=== PATIENT | male | born 1945 | race Caucasian/White ===

== ENCOUNTER 2016-10-29 21:10 | Observation (INO) | payer MEDICARE ==
[~2016-10-29] VITALS: Ht 172.7 cm; Wt 73.4 kg
[~2016-10-29 21:10] MED LIST: ASPI81CH CHEW; METO50TA PO; ROSU40 PO
[2016-10-29 21:17] VITALS: BP 200/82; PULSE 77; RESP 18; TEMP 97.6; O2SAT 97
[2016-10-29 21:35] VITALS: BP_SYST 150; BP_SYST 169; BP_DIAS 78; BP_DIAS 88; PULSE 77; RESP 18; O2SAT 97
[2016-10-29 21:45] VITALS: BP 162/82; PULSE 70; RESP 18; O2SAT 96
[2016-10-29] MEDS ORDERED: METOPROLOL TARTRATE 5 MG/5 ML VIAL IVS SCH (21:45)
[2016-10-29] MEDS ORDERED: SODIUM CHLORIDE 0.9% FLUSH 5 ML FLUSH IVF PRN ×2 (21:45→23:15)
--- NOTE | 2016-10-29 21:45 | PD ---
HPI Chief Complaint: Chest Pain Time Seen by Provider: 21:33 Travel History International Travel<30 days: No Contact w/Intl Traveler<30days: No Traveled to known affect area: No History of Present Illness HPI The patient is a 71-year-old male that complains of chest pressure beginning at 7 PM tonight in the substernal area and constant. He does have a history of heart disease. His last stress test was 4-5 years ago. He denies any nausea, diaphoresis or radiation of pain but does have some shortness of breath. He is a [facility] patient of Dr. Anthony Ryan and he has an appointment with her tomorrow. This happened as he was resting and watching TV. He states he may have been somewhat stressed hearing reports about the storm tonight. PFSH Past Medical History Atrial Fibrillation: Yes Blood Disorders: No Anxiety: No Depression: No Heart Rhythm Problems: No Cancer: No Cardiac Catheterization: No Cardiovascular Problems: Yes High Cholesterol: Yes Congestive Heart Failure: No Cerebrovascular Accident: Yes (tia) Diabetes: No Diminished Hearing: No Endocrine: No Genitourinary: No Hypertension: Yes Immune Disorder: No Musculoskeletal: No Neurologic: No Psychiatric: No Reproductive: No Respiratory: No Immunizations Current: Yes Thyroid Disease: No Past Surgical History Abdominal Surgery: Yes (APPENDECTOMY) Appendectomy: Yes Cardiac Surgery: No Coronary Artery Bypass Graft: No Ear Surgery: No Endocrine Surgery: No Eye Surgery: No Genitourinary Surgery: No Gynecologic Surgery: No Oral Surgery: Yes (TONSILLECTOMY) Thoracic Surgery: No Tonsillectomy: Yes Other Surgery: Yes Social History Alcohol Use: No Tobacco Use: Yes (1/2 PACK A DAY FOR 40 YEARS) Substance Use: No Allergies-Medications (Allergen,Severity, Reaction): Coded Allergies: Amoxicillin (Verified Allergy, Severe, ITCHING, 10/29/16) Bee Sting (Verified Allergy, Mild, ITCHING BENADRYL STOPS ITCHING, 10/29/16 ) Reported Meds & Prescriptions Reported Meds & Active Scripts Active Reported Metoprolol Tartrate 50 Mg Tab 50 Mg PO DAILY Crestor (Rosuvastatin Calcium) 40 Mg Tab 40 Mg PO DAILY Aspirin 81 Mg Chew 162 Mg CHEW DAILY Review of Systems Except as stated in HPI: all other systems reviewed are Neg Physical Exam Narrative GENERAL: The patient is alert, oriented 3 in no apparent distress. His vital signs show blood pressure 200/82 but otherwise normal. SKIN: Warm and dry. HEAD: Atraumatic. Normocephalic. EYES: Pupils equal and round. No scleral icterus. No injection or drainage. ENT: No nasal bleeding or discharge. Mucous membranes pink and moist. NECK: Trachea midline. No JVD. CARDIOVASCULAR: Regular rate and rhythm. No murmur appreciated. RESPIRATORY: No accessory muscle use. A few rare rhonchi are heard on expiration. Breath sounds equal bilaterally. GASTROINTESTINAL: Abdomen soft, non-tender, nondistended. Hepatic and splenic margins not palpable. No guarding or rebound is present. MUSCULOSKELETAL: No obvious deformities. No clubbing. No cyanosis. No edema. NEUROLOGICAL: Awake and alert. No obvious cranial nerve deficits. Motor grossly within normal limits. Normal speech. PSYCHIATRIC: Appropriate mood and affect; insight and judgment normal. Data Data Last Documented VS Vital Signs Date Time Temp Pulse Resp B/P Pulse Ox O2 Delivery O2 Flow Rate FiO2 10/29/16 22:26 97 Room Air 10/29/16 22:00 67 18 131/71 10/29/16 21:17 97.6 Orders Electrocardiogram (10/29/16 21:33) Ckmb (Isoenzyme) Profile (10/29/16 21:33) Complete Blood Count With Diff (10/29/16 21:33) Comprehensive Metabolic Panel (10/29/16 21:33) Magnesium (Mg) (10/29/16 21:33) Prothrombin Time / Inr (Pt) (10/29/16 21:33) Act Partial Throm Time (Ptt) (10/29/16 21:33) Troponin I (10/29/16 21:33) Chest, Single Ap (10/29/16 21:33) Ecg Monitoring (10/29/16 21:33) Iv Access Insert/Monitor (10/29/16 21:33) Oximetry (10/29/16 21:33) Oxygen Administration (10/29/16 21:33) Sodium Chloride 0.9% Flush (Ns Flush) (10/29/16 21:45) Nitroglycerin Sl (Nitrostat Sl) (10/29/16 22:00) Labs Laboratory Tests Test 10/29/16 21:15 White Blood Count 11.3 TH/MM3 Red Blood Count 5.00 MIL/MM3 Hemoglobin 14.6 GM/DL Hematocrit 44.6 % Mean Corpuscular Volume 89.2 FL Mean Corpuscular Hemoglobin 29.3 PG Mean Corpuscular Hemoglobin 32.9 % Concent Red Cell Distribution Width 14.2 % Platelet Count 192 TH/MM3 Mean Platelet Volume 10.3 FL Neutrophils (%) (Auto) 56.0 % Lymphocytes (%) (Auto) 33.4 % Monocytes (%) (Auto) 7.1 % Eosinophils (%) (Auto) 3.1 % Basophils (%) (Auto) 0.4 % Neutrophils # (Auto) 6.4 TH/MM3 Lymphocytes # (Auto) 3.8 TH/MM3 Monocytes # (Auto) 0.8 TH/MM3 Eosinophils # (Auto) 0.3 TH/MM3 Basophils # (Auto) 0.0 TH/MM3 CBC Comment DIFF FINAL Differential Comment Prothrombin Time 10.0 SEC Prothromb Time International 0.9 RATIO Ratio Activated Partial 27.2 SEC Thromboplast Time Sodium Level 143 MEQ/L Potassium Level 3.5 MEQ/L Chloride Level 109 MEQ/L Carbon Dioxide Level 26.7 MEQ/L Anion Gap 7 MEQ/L Blood Urea Nitrogen 24 MG/DL Creatinine 1.20 MG/DL Estimat Glomerular Filtration 60 ML/MIN Rate Random Glucose 119 MG/DL Calcium Level 8.6 MG/DL Magnesium Level 1.9 MG/DL Total Bilirubin 0.3 MG/DL Aspartate Amino Transf 18 U/L (AST/SGOT) Alanine Aminotransferase 23 U/L (ALT/SGPT) Alkaline Phosphatase 81 U/L Total Creatine Kinase 68 U/L Troponin I LESS THAN 0.02 NG/ML Total Protein 7.0 GM/DL Albumin 3.5 GM/DL [facility] Medical Decision Making Medical Screen Exam Complete: Yes Emergency Medical Condition: Yes Medical Record Reviewed: Yes Interpretation(s) The EKG shows sinus rhythm with PACs. Except for the PACs, there is no significant change from an EKG taken on January 2015. Differential Diagnosis Acute coronary syndromeunlikely chest pain etiology undetermined, electrolyte imbalance, hypo-/hyperglycemia, anxiety, esophageal pain, chest wall pain, gastrointestinal pain Narrative Course The patient has chest pain etiology undetermined. There is no evidence at this time that he has an acute coronary syndrome. Plan: The patient will be admitted to the chest pain center, I discussed the patient with Drs. Stephenson and David. Diagnosis Primary Impression: Chest pain of uncertain etiology Admitting Information Admitting Physician Requests: Observation Arnaldo Espinal MD Oct 29, 2016 21:45
[2016-10-29 21:54] LABS: AUTOMATED NEUTROPHIL # 6.4 TH/MM3 (1.8-7.7); BASOPHIL % 0.4 % (0.0-2.0); EOSINOPHIL # 0.3 TH/MM3 (0-0.4); EOSINOPHIL % 3.1 % (0.0-4.0); HEMATOCRIT 44.6 % (39.0-51.0); HEMO FLAGS DIFF FINAL; LYMPH % 33.4 % (9.0-44.0); LYMPHOCYTE # 3.8 TH/MM3 (1.0-4.8); MEAN CELL VOLUME 89.2 FL (80.0-100.0); MEAN CORPUSCULAR HEMOGLOBIN 29.3 PG (27.0-34.0); MEAN CORPUSCULAR HGB CONC 32.9 % (32.0-36.0); MONO % 7.1 % (0.0-8.0); PLATELET COUNT 192 TH/MM3 (150-450); RED CELL DISTRIBUTION WIDTH 14.2 % (11.6-17.2); WHITE BLOOD COUNT 11.3 TH/MM3 (4.0-11.0)
[2016-10-29 22:00] VITALS: BP 131/71; PULSE 67; RESP 18; O2SAT 95
[2016-10-29] MEDS: NITROGLYCERIN 0.4 MG SL 25 TABS/BTL SL SCH ×3 (22:00→22:10)
[2016-10-29 22:03] LABS: CHLORIDE 109 MEQ/L (98-107); POTASSIUM 3.5 MEQ/L (3.5-5.1); SODIUM (NA) 143 MEQ/L (136-145)
[2016-10-29 22:07] LABS: ANION GAP 7 MEQ/L (5-15); BICARBONATE 26.7 MEQ/L (21.0-32.0); BLOOD UREA NITROGEN 24 MG/DL (7-18); MAGNESIUM 1.9 MG/DL (1.5-2.5)
[2016-10-29 22:09] LABS: APTT (PATIENT) 27.2 SEC (24.3-30.1); INTERNATIONAL NORMALIZED RATIO 0.9 RATIO
[2016-10-29 22:10] LABS: ALT (GPT) 23 U/L (12-78); AST (GOT) 18 U/L (15-37); GLOMERULAR FILTRATION RATE 60 ML/MIN (>89)
[2016-10-29 22:11] LABS: TOTAL BILIRUBIN ADULT 0.3 MG/DL (0.2-1.0)
[2016-10-29 22:13] LABS: ALKALINE PHOSPHATASE 81 U/L (45-117)
[2016-10-29 22:36] LABS: CREATINE KINASE 68 U/L (39-308)
--- NOTE | 2016-10-29 22:38 | RADHPO ---
EXAM DATE/TIME: 10/29/2016 22:30 [facility] COMPARISON: CHEST SINGLE AP, September 28, 2016, 13:36. INDICATIONS : Chest pain MEDICAL HISTORY : None. SURGICAL HISTORY : None. ENCOUNTER: Initial ACUITY: 2 days PAIN SCORE: 6/10 LOCATION: Bilateral chest FINDINGS: A single view of the chest demonstrates the lungs to be symmetrically aerated without evidence of mas s, infiltrate or effusion. The cardiomediastinal contours are unremarkable. Aortic calcifications ar e present. There is degenerative change at the left glenohumeral joint.. CONCLUSION: No acute disease. David Castle MD on October 29, 2016 at 22:36 Board Certified Radiologist. This report was verified electronically.
[2016-10-29] MEDS ORDERED: ONDANSETRON HCL 4 MG/2 ML VIAL IV PRN (23:15)
[2016-10-29] MEDS ORDERED: ACETAMINOPHEN 500 MG CPLT PO PRN (23:15)
[2016-10-29 23:47] VITALS: O2SAT 97
[2016-10-30 01:00] VITALS: BP 165/68; PULSE 77; RESP 18; O2SAT 99
[2016-10-30 01:03] LABS: CREATINE KINASE 75 U/L (39-308)
[2016-10-30 03:00] VITALS: BP 145/67; PULSE 62; RESP 18; O2SAT 98
[2016-10-30 04:22] LABS: CREATINE KINASE 72 U/L (39-308)
[2016-10-30 08:00] VITALS: BP 147/73; PULSE 62; RESP 16; TEMP 97.8; O2SAT 96
--- NOTE | 2016-10-30 08:08 | HHI.HP ---
[facility] Primary Care Physician No Primary Care Physician Admission Diagnosis chest pain uncertain etiology Diagnoses: (1) Chest pain of uncertain etiology Diagnosis: Principal (2) Hypertension Diagnosis: Secondary (3) Hyperlipidemia Diagnosis: Secondary (4) History of atrial fibrillation Diagnosis: Secondary (5) Tobacco use Diagnosis: Secondary Chief Complaint: Chest pain Travel History International Travel<30 Days: No Contact w/Intl Traveler <30 Da: No Traveled to Known Affected Are: No History of Present Illness 71 year-old male with known history of hypertension, hyperlipidemia, history of atrial fibrillation, history of CVA, tobacco use who presented to hospital because of chest pain. Patient states the chest pain started last night while watching TV in all of the storm alerts are gone off he developed a pressure type sensation in the middle part of his chest radiating into/10 on a pain scale. It remained persistent until he came to the hospital and while he was emergency department it resolved without any medications. Patient states he did not have any associated pain radiation to the neck, shoulder, back, nausea, vomiting, diaphoresis, shortness of breath, dyspnea. Patient has not had any recurrent chest discomfort since being in the hospital. Patient was evaluated in 2015 by myself for similar symptoms. At that time patient did undergo nuclear stress test which did indicate no signs of ischemia. With ejection fraction greater than 65%. Patient does have increased risk factors for underlying cardiac disease. Patient is recommended chest pain center observation for further management. Review of Systems Constitutional: DENIES: Diaphoretic episodes, Fatigue, Fever, Weight gain, Weight loss, Chills, Dizziness, Change in appetite, Night Sweats Eyes: DENIES: Blurred vision, Diplopia, Eye inflammation, Eye pain, Vision loss , Double Vision Ears, nose, mouth, throat: DENIES: Vertigo, Nasal discharge, Throat pain, Ear Pain, Running Nose, Sinus Pain Respiratory: DENIES: Apneas, Cough, Snoring, Wheezing, Hemoptysis, Sputum production, Shortness of breath Cardiovascular: COMPLAINS OF: Chest pain, DENIES: Palpitations, Syncope, Dyspnea on Exertion, Lower Extremity Edema, Orthopnea Gastrointestinal: DENIES: Abdominal pain, Black stools, Bloody stools, Constipation, Diarrhea, Nausea, Vomiting, Difficulty Swallowing, Anorexia Neurologic: DENIES: Abnormal gait, Headache, Localized weakness, Paresthesias, Seizures, Speech Problems, Tremor, Poor Balance Psychiatric: DENIES: Anxiety, Confusion, Mood changes, Depression Past Family Social History Past Medical History Hypertension Hyperlipidemia History of atrial fibrillation History CVA Chronic tobacco use Past Surgical History Appendectomy Tonsillectomy Reported Medications Reported Meds & Active Scripts Active Reported Metoprolol Tartrate 50 Mg Tab 50 Mg PO DAILY Crestor (Rosuvastatin Calcium) 40 Mg Tab 40 Mg PO DAILY Aspirin 81 Mg Chew 162 Mg CHEW DAILY Allergies: Coded Allergies: Amoxicillin (Verified Allergy, Severe, ITCHING, 10/29/16) Bee Sting (Verified Allergy, Mild, ITCHING BENADRYL STOPS ITCHING, 10/29/16 ) Family History Reviewed and unremarkable Social History Patient smokes a half a pack a cigarettes a day at this time, he is to smoke one pack a cigarettes a day since he was 21 years old. Patient does use a couple beers daily. Denies any illicit drugs Physical Exam Vital Signs Vital Signs Date Time Temp Pulse Resp B/P Pulse Ox O2 Delivery O2 Flow Rate FiO2 10/30/16 03:00 62 98 Room Air 10/30/16 03:00 62 18 145/67 98 Room Air 10/30/16 01:00 77 10/30/16 01:00 77 18 165/68 99 Room Air 10/29/16 23:47 97 21 10/29/16 22:26 97 Room Air 10/29/16 22:00 67 18 131/71 95 Room Air 10/29/16 21:45 70 18 162/82 96 Room Air 10/29/16 21:35 77 18 169/88 97 Room Air 150/78 10/29/16 21:30 71 20 99 Room Air 10/29/16 21:17 97.6 77 18 200/82 97 Physical Exam GENERAL: Well-developed, well-nourished, in no acute distress. alert and orientated HEENT: Head is normocephalic without any lesions or masses noted. Facial features are symmetric. Eyes: Pupils equal round reactive to light. Extraocular muscles are intact. Conjunctivae were clear. Oropharyngeal: Pharynx without any erythema edema. Tongue is midline without deviation. Buccal mucosa is moist without any masses or lesions NECK: Supple without any masses. Trachea midline no deviation. No JVD, no bruits are appreciated CARDIAC: Regular rhythm, regular rate. S1/S2 are heard. No murmurs gallops or rubs. LUNGS: Clear to auscultation bilaterally. No wheeze, rhonchi or rales. No use of accessory muscles on inspiration or expiration. ABDOMEN: Soft, nontender. Nondistended. Bowel sounds heard in all 4 quadrants. No organomegaly or masses. Negative rebound, negative guarding EXTREMITIES: No edema, pulses are equal bilaterally. No cyanosis or clubbing NEUROLOGY: Mood and affect appear appropriate. Cranial nerves II through XII grossly intact. Muscle strength 5/5 in upper and lower extremities bilaterally. Deep tendon reflexes are 2+ in upper and lower extremities bilaterally. Laboratory Laboratory Tests Test 10/29/16 10/30/16 10/30/16 21:15 00:20 03:07 White Blood Count 11.3 Red Blood Count 5.00 Hemoglobin 14.6 Hematocrit 44.6 Mean Corpuscular Volume 89.2 Mean Corpuscular Hemoglobin 29.3 Mean Corpuscular Hemoglobin 32.9 Concent Red Cell Distribution Width 14.2 Platelet Count 192 Mean Platelet Volume 10.3 Neutrophils (%) (Auto) 56.0 Lymphocytes (%) (Auto) 33.4 Monocytes (%) (Auto) 7.1 Eosinophils (%) (Auto) 3.1 Basophils (%) (Auto) 0.4 Neutrophils # (Auto) 6.4 Lymphocytes # (Auto) 3.8 Monocytes # (Auto) 0.8 Eosinophils # (Auto) 0.3 Basophils # (Auto) 0.0 CBC Comment DIFF FINAL Differential Comment Prothrombin Time 10.0 Prothromb Time International 0.9 Ratio Activated Partial 27.2 Thromboplast Time Sodium Level 143 Potassium Level 3.5 Chloride Level 109 Carbon Dioxide Level 26.7 Anion Gap 7 Blood Urea Nitrogen 24 Creatinine 1.20 Estimat Glomerular Filtration 60 Rate Random Glucose 119 Calcium Level 8.6 Magnesium Level 1.9 Total Bilirubin 0.3 Aspartate Amino Transf 18 (AST/SGOT) Alanine Aminotransferase 23 (ALT/SGPT) Alkaline Phosphatase 81 Total Creatine Kinase 68 75 72 Troponin I LESS THAN 0.02 LESS THAN 0.02 LESS THAN 0.02 Total Protein 7.0 Albumin 3.5 Result Diagram: 10/29/16211410/29/162114 Imaging Last Impressions Chest X-Ray 10/29/162132 Signed Impressions: Service Date/Time: Saturday, October 29, 2016 22:30 - CONCLUSION: No acute disease. David Castle MD Assessment and Plan Assessment and Plan Chest pain, atypical: Patient with increased risk factors to include age, hypertension, hyperlipidemia, tobacco use. Serial cardiac enzymes were reviewed by myself remain negative. Patient ruled out for an acute coronary event Serial EKGs were performed which do show right bundle branch block without any changes Nuclear stress test was negative for any ischemia Will continue aspirin and nitroglycerin as needed Hypertension: Resume home medications, Hyperlipidemia: Resume statin History of atrial fibrillation, Patient with right bundle branch block with occasional PACs Beta isaias has been continued Daily tobacco use: Counseled on cessation DVT prevention: Low risk, early ambulation Written by Prosper Espinal PA-C, acting as scribe for Dr. Santana on 10/30/16 at 1310. The documentation accurately reflects the work and decisions performed face-to- face by Dr. Santana on 10/30/16 at 1310. Discharge disposition Discharge home in stable condition Activity: Ad eve. Diet: Healthy heart diet Medications per medication reconciliation Follow-up primary medical doctor in one week Problem Qualifiers (1) Hypertension: Qualified Code: I15.9 - Secondary hypertension (2) Hyperlipidemia: Qualified Code: E78.5 - Hyperlipidemia, unspecified hyperlipidemia type Prosper Espinal Oct 30, 2016 08:08
--- NOTE | 2016-10-30 08:12 | HHI.DCPOC ---
Discharge Care Plan Diagnosis: (1) Chest pain of uncertain etiology Goals to Promote Your Health * To prevent worsening of your condition and complications * To maintain your health at the optimal level Directions to Meet Your Goals Take your medications as prescribed Follow your dietary instruction Follow activity as directed Keep your appointments as scheduled Take your immunizations and boosters as scheduled If your symptoms worsen call your PCP, if no PCP go to Urgent Care Center or Emergency Room Smoking is Dangerous to Your Health. Avoid second hand smoke Call the 24-hour hour crisis hotline for domestic abuse at Prosper Espinal Oct 30, 2016 08:12
[2016-10-30] MEDS ORDERED: METOPROLOL TARTRATE 50 MG TAB PO SCH (09:00)
[2016-10-30] MEDS ORDERED: SODIUM CHLORIDE 0.9% FLUSH 5 ML FLUSH IVF SCH (09:00)
[2016-10-30] MEDS ORDERED: ATORVASTATIN 40 MG TAB PO SCH (09:00)
[2016-10-30] MEDS ORDERED: ASPIRIN 325 MG TAB PO SCH (09:00)
[2016-10-30 09:21] VITALS: BP 143/69; PULSE 56; RESP 16; O2SAT 97
[2016-10-30] MEDS ORDERED: REGADENOSON INJ 0.4 MG/5 ML SYR IV ONE (10:43)
--- NOTE | 2016-10-30 12:10 | EKG ---
Date Performed: 10/30/2016 Time Performed: 00:07:38 PTAGE: 71 years EKG: Sinus rhythm with aberrantly conducted supraventricular complexes with frequent multifocal PVCs with PAC(s). Righ t bundle branch block Inferior/lateral ST-T changes may be due to myocardial ischemia Abnormal ECG PREVIOUS TRACING : 10/29/2016 21.14 Since previous tracing, no significant change noted DOCTOR: Kt Lee Interpretating Date/Time 10/30/2016 12:08:53
--- NOTE | 2016-10-30 12:10 | EKG ---
Date Performed: 10/30/2016 Time Performed: 03:02:06 PTAGE: 71 years EKG: Sinus rhythm . Right bundle branch block Abnormal ECG PREVIOUS TRACING : 10/30/2016 00.07 Since previous tracing, no significant change noted DOCTOR: Kt Lee Interpretating Date/Time 10/30/2016 12:08:33
--- NOTE | 2016-10-30 12:10 | EKG ---
Date Performed: 10/29/2016 Time Performed: 21:14:46 PTAGE: 71 years EKG: Sinus rhythm with PAC(s). Right bundle branch block Abnormal ECG PREVIOUS TRACING : 10/29/2016 21.14 Since previous tracing, no significant change noted DOCTOR: Kt Lee Interpretating Date/Time 10/30/2016 12:09:04
--- NOTE | 2016-10-30 12:11 | TR ---
Date Performed: 10/30/2016 Time Performed: 11:16:56 DOCTOR: Kt Lee DRUG LIST: CLINICAL HISTORY: REASON FOR TEST: Chest pain. REASON FOR ENDING: OBSERVATION: CONCLUSION: Patient exercised using the Primo protocol. No electrocardiographic changes were see n to suggest ischemia. Hemodynamic response to exercise was normal. No significant arrhythmia was pre sent. COMMENTS:
--- NOTE | 2016-10-30 12:12 | RADHPO ---
EXAM DATE/TIME: 10/30/2016 11:10 [facility] COMPARISON: MYOCARDIAL PERF PHARM SPECT, GATED W/EF, January 19, 2015, 10:14. CHEST SINGLE AP, October 29, 2016, 2 2:30. INDICATIONS : Substernal chest pain with dyspnea. Angina. DOSE: 26.1 mCi Tc99m Myoview at stress. 8.7 mCi Tc99m Myoview at rest. 0.4 mg Lexiscan STRESS SYMPTOMS: Dyspnea, hot feeling and stomach pain. EJECTION FRACTION: 65% MEDICAL HISTORY : Hypercholesterolemia. Hypertension. Smoker. SURGICAL HISTORY : Appendectomy. ENCOUNTER: Initial ACUITY: 1 day PAIN SCALE: 6/10 LOCATION: Substernal chest TECHNIQUE: The patient underwent pharmacologic stress with infusion of prescribed dose. Continuous ECG tracing was monitored during stress. Gated SPECT imaging was performed after stress and conventional SPECT i maging was performed at rest. The examination was performed on a SPECT/CT scanner, both attenuation and non-corrected datasets were reviewed. FINDINGS: DISTRIBUTION: Wall of maximum perfusion at stress is the anterior wall PERFUSION STUDY: The pattern of perfusion at stress is within normal limits. GATED STUDY: There is intact wall motion and thickening without hypokinetic or dyskinetic segments. CONCLUSION: Normal examination. RISK CATEGORY: Low (<1% Annual Mortality Rate) Madhu To MD on October 30, 2016 at 12:08 Board Certified Radiologist. This report was verified electronically.
[2016-10-30 13:00] VITALS: BP 144/82; PULSE 89; RESP 18; TEMP 98.2; O2SAT 97
== END 2016-10-30 13:44 | disposition home or self-care (01) ==
LOC: PHED 21:10 → PHEDA 23:11 → PHEDH 10-30 03:11 → PH3A 10-30 09:50
PROVIDERS: ADMIT Family Medicine; ATTEND Family Medicine
DX: R07.9 Chest pain, unspecified (principal); I10 Essential (primary) hypertension; E78.00 Pure hypercholesterolemia, unspecified; E78.5 Hyperlipidemia, unspecified; I48.91 Unspecified atrial fibrillation; I45.19 Other right bundle-branch block; R06.02 Shortness of breath; F17.210 Nicotine dependence, cigarettes, uncomplicated; Z86.73 Personal history of transient ischemic attack (TIA), and cerebral infarction without residual deficits
CPT/HCPCS: 71010; 78452; 80053; 82550; 83735; 84484; 85025; 85610; 85730; 93005; 93017; 99285; A9502; G0378; J2785

== ENCOUNTER 2016-12-12 04:53 | Inpatient (IN) | payer MEDICARE ==
[2016-12-12] VITALS (16 sets, daily range): BP systolic 128–171; BP diastolic 61–84; PULSE 51–80; RESP 17–20; TEMP 97.2–98.6; O2SAT 92–100
[~2016-12-12] VITALS: Ht 172.7 cm; Wt 72.9 kg
[2016-12-12] MEDS ORDERED: SODIUM CHLOR 0.9% 1000 ML INJ 1,000 ML IV ONE (04:54)
[2016-12-12 05:09] LABS: I-STAT POTASSIUM 3.8 MMOL/L (3.5-4.9); I-STAT SODIUM 142 MMOL/L (138-146)
[2016-12-12 05:10] LABS: AUTOMATED NEUTROPHIL # 4.7 TH/MM3 (1.8-7.7); BASOPHIL # 0.1 TH/MM3 (0-0.2); BASOPHIL % 0.9 % (0.0-2.0); EOSINOPHIL # 0.4 TH/MM3 (0-0.4); EOSINOPHIL % 4.1 % (0.0-4.0); HEMO FLAGS DIFF FINAL; LYMPH % 40.7 % (9.0-44.0); LYMPHOCYTE # 4.2 TH/MM3 (1.0-4.8); MEAN CELL VOLUME 89.2 FL (80.0-100.0); MEAN CORPUSCULAR HEMOGLOBIN 30.1 PG (27.0-34.0); MEAN CORPUSCULAR HGB CONC 33.7 % (32.0-36.0); MONO % 8.4 % (0.0-8.0); NEUT % 45.9 % (16.0-70.0); PLATELET COUNT 158 TH/MM3 (150-450); RED BLOOD COUNT 4.71 MIL/MM3 (4.50-5.90); RED CELL DISTRIBUTION WIDTH 14.8 % (11.6-17.2); WHITE BLOOD COUNT 10.3 TH/MM3 (4.0-11.0)
--- NOTE | 2016-12-12 05:21 | PD ---
HPI Chief Complaint: Stroke Alert Time Seen by Provider: 04:54 Travel History International Travel<30 days: No Contact w/Intl Traveler<30days: No Traveled to known affect area: No History of Present Illness HPI 71-year-old male with history of hypertension, A. fib, previous TIA, presents to the ER brought in by EMS as a stroke alert, patient woke up at 3:45 AM, noted that he was having right facial droop, of cult he speaking, right arm weakness. He had gone to bed at midnight. That was the last time he was seen normal. His had noted that he had a worsening in right sided deficits and called EMS. He denies any chest pains, shortness of breath, or any other symptoms. Modifying Factors: None Associated Signs & Symptoms: Stroke alert, right facial droop, right arm weakness, aphasia Risk Factors: Previous TIAs PFSH Past Medical History Atrial Fibrillation: Yes Blood Disorders: No Anxiety: No Depression: No Heart Rhythm Problems: Yes (afib) Cancer: No Cardiac Catheterization: No Cardiovascular Problems: Yes High Cholesterol: Yes Chest Pain: Yes (this admit) Congestive Heart Failure: No Cerebrovascular Accident: Yes (tia about 4 years ago (2012)) Diabetes: No Diminished Hearing: No Endocrine: No Genitourinary: No Hypertension: Yes Immune Disorder: No Musculoskeletal: No Neurologic: Yes Psychiatric: No Reproductive: No Respiratory: No Immunizations Current: Yes Migraines: Yes Thyroid Disease: No ?: Not Past Surgical History Abdominal Surgery: Yes (APPENDECTOMY) Appendectomy: Yes Cardiac Surgery: No Coronary Artery Bypass Graft: No Ear Surgery: No Endocrine Surgery: No Eye Surgery: No Genitourinary Surgery: No Gynecologic Surgery: No Oral Surgery: Yes (TONSILLECTOMY) Thoracic Surgery: No Tonsillectomy: Yes Other Surgery: Yes Social History Alcohol Use: No Tobacco Use: Yes (1/2 PACK A DAY FOR 40 YEARS) Substance Use: No Allergies-Medications (Allergen,Severity, Reaction): Coded Allergies: Amoxicillin (Verified Allergy, Severe, ITCHING, 12/12/16) Bee Sting (Verified Allergy, Mild, ITCHING BENADRYL STOPS ITCHING, 12/12/16) Reported Meds & Prescriptions Reported Meds & Active Scripts Active Reported Metoprolol Tartrate 50 Mg Tab 50 Mg PO DAILY Crestor (Rosuvastatin Calcium) 40 Mg Tab 40 Mg PO DAILY Aspirin 81 Mg Chew 162 Mg CHEW DAILY Review of Systems Except as stated in HPI: all other systems reviewed are Neg Physical Exam Narrative GENERAL: Well-nourished, well-developed elderly white male patient in mild distress. Awake, alert, oriented 3. SKIN: Warm and dry. HEAD: Normocephalic. EYES: No scleral icterus. No injection or drainage. NECK: Supple, trachea midline. CARDIOVASCULAR: Regular rate and rhythm without murmurs, gallops, or rubs. RESPIRATORY: Breath sounds equal bilaterally. No accessory muscle use. GASTROINTESTINAL: Abdomen soft, non-tender, nondistended. MUSCULOSKELETAL: No cyanosis, or edema. BACK: Nontender without obvious deformity. No CVA tenderness. NEUROLOGICAL: Awake and alert. Notable right facial droop. Decrease strength in the right leg. Right arm pronator drift. Mild aphasia. Data Data Last Documented VS Vital Signs Date Time Temp Pulse Resp B/P Pulse Ox O2 Delivery O2 Flow Rate FiO2 12/12/16 05:12 97.2 80 18 130/84 99 12/12/16 05:08 Room Air 12/12/16 04:57 3.00 Orders Diet Npo (12/12/16 Breakfast) Activity Bed Rest (12/12/16 ) Electrocardiogram (12/12/16 ) I-Stat Creatinine (12/12/16 04:54) I-Stat Profile (12/12/16 04:54) Prothrombin Time / Inr (Pt) (12/12/16 04:54) Act Partial Throm Time (Ptt) (12/12/16 04:54) Complete Blood Count With Diff (12/12/16 04:54) Fibrinogen (12/12/16 04:54) Creatine Kinase (Cpk) (12/12/16 04:54) Troponin I (12/12/16 04:54) Ua Includes Microscopic (12/12/16 04:54) Drug Screen, Random Urine (12/12/16 04:54) Type And Screen (12/12/16 04:54) Ct Brain W/O Iv Contrast(Rout) (12/12/16 ) Chest, Single Ap (12/12/16 ) Blood Glucose (12/12/16 04:54) Ecg Monitoring (12/12/16 04:54) Neuro Checks Q2HX12,Q4H (12/12/16 04:54) Nursing Bedside Swallow Assess .ONCE (12/12/16 04:54) Iv Access Insert/Monitor (12/12/16 04:54) NPO (12/12/16 04:54) Oximetry (12/12/16 04:54) Oxygen Administration (12/12/16 04:54) Sodium Chlor 0.9% 1000 Ml Inj (Ns 1000 M (12/12/16 04:54) Resp Oxygen Jack C Titrat 1-4 L (12/12/16 04:54) Cath For Specimen (12/12/16 04:54) Heparin-D5w Inj (Heparin-D5w Inj) (12/12/16 05:30) Cbc No Diff, Includes Plts (12/12/16 05:26) Cbc No Diff, Includes Plts (12/15/16 06:00) Act Partial Throm Time (Ptt) (12/12/16 05:26) Cta Brain W Iv Contrast W 3d (12/12/16 05:26) Cta Neck W Iv Contrast W 3d (12/12/16 05:26) Consult Neurology (12/12/16 ) Mri Brain W&W/O Contrast (12/12/16 05:26) Admit Order (Ed Use Only) (12/12/16 05:37) Labs Laboratory Tests Test 12/12/16 03:55 White Blood Count 10.3 TH/MM3 Red Blood Count 4.71 MIL/MM3 Hemoglobin 14.2 GM/DL Bedside Hemoglobin 14.6 G/DL Hematocrit 42.0 % Bedside Hematocrit 43.0 % Mean Corpuscular Volume 89.2 FL Mean Corpuscular Hemoglobin 30.1 PG Mean Corpuscular Hemoglobin 33.7 % Concent Red Cell Distribution Width 14.8 % Platelet Count 158 TH/MM3 Mean Platelet Volume 10.3 FL Neutrophils (%) (Auto) 45.9 % Lymphocytes (%) (Auto) 40.7 % Monocytes (%) (Auto) 8.4 % Eosinophils (%) (Auto) 4.1 % Basophils (%) (Auto) 0.9 % Neutrophils # (Auto) 4.7 TH/MM3 Lymphocytes # (Auto) 4.2 TH/MM3 Monocytes # (Auto) 0.9 TH/MM3 Eosinophils # (Auto) 0.4 TH/MM3 Basophils # (Auto) 0.1 TH/MM3 CBC Comment DIFF FINAL Differential Comment Prothrombin Time 10.0 SEC Prothromb Time International 0.9 RATIO Ratio Activated Partial 27.5 SEC Thromboplast Time Fibrinogen 377 mg/dL Bedside Sodium 142 MMOL/L Bedside Potassium 3.8 MMOL/L Bedside Chloride 104 MMOL/L Bedside Blood Urea Nitrogen 16 MG/DL Bedside Creatinine 1.1 MG/DL Bedside Glucose 91 MG/DL Total Creatine Kinase 71 U/L Troponin I LESS THAN 0.02 NG/ML Blood Type O POSITIVE Blood Bank Comment [facility] Medical Decision Making Medical Screen Exam Complete: Yes Emergency Medical Condition: Yes Medical Record Reviewed: Yes Interpretation(s) EKG shows normal sinus rhythm at a rate of 60 bpm with a right bundle branch block pattern with no signs of acute ST-T changes. Laboratory Tests Test 12/12/16 03:55 Monocytes (%) (Auto) 8.4 % (0.0-8.0) Eosinophils (%) (Auto) 4.1 % (0.0-4.0) Troponin I LESS THAN 0.02 NG/ML (0.02-0.05) Last [address] 12/12/16 0000 Signed Impressions: Service Date/Time: Monday, December 12, 2016 04:55 - CONCLUSION: 1. 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 2. Minimal chronic sinus disease in the right maxillary antra 3. Nothing acute. Jin Mccarthy MD Chest X-Ray 12/12/16 0000 Signed Impressions: Service Date/Time: Monday, December 12, 2016 05:24 - CONCLUSION: No acute cardiopulmonary process. Jin Mccarthy MD Differential Diagnosis Right facial droop, aphasia, right arm weaknessstroke alert versus acute intracranial bleed versus metabolic or electrolyte abnormalities Narrative Course CT is negative for any acute intracranial bleed. Case was discussed with Dr. Diallo who would like the patient to be put on heparin, IV fluids, and get a CTA and MRI of the brain for further evaluation. He states that the patient did not make window for a TPA treatment. He was last seen normal at midnight. Case was then discussed with [facility] doctor Roe for admission. Diagnosis Primary Impression: CVA (cerebral vascular accident) Admitting Information Admitting Physician Requests: Admit Mitul Booth MD Dec 12, 2016 05:21
--- NOTE | 2016-12-12 05:23 | RADRPT ---
EXAM DATE/TIME: 12/12/2016 04:55 [facility] COMPARISON: CT BRAIN W/O CONTRAST, September 28, 2016, 15:01. INDICATIONS : Stroke alert, weakness, slurred speech. RADIATION DOSE: 56.35 CTDIvol (mGy) This report was called by Dr. Mccarthy to the Dr. Booth at 0520 MEDICAL HISTORY : Hypertension. Cardiovascular disease CVA SURGICAL HISTORY : Appendectomy. ENCOUNTER: Initial ACUITY: 1 day PAIN SCALE: 0/10 LOCATION: cranial TECHNIQUE: Multiple contiguous axial images were obtained of the head. Using automated exposure control and adj ustment of the mA and/or kV according to patient size, radiation dose was kept as low as reasonably a chievable to obtain optimal diagnostic quality images. FINDINGS: CEREBRUM: The ventricles are normal for age. Moderately severe periventricular small vessel ischemic demyelina tion with evidence of a diminished attenuation. Punctate old basal ganglia lacunar type infarcts bila terally. No evidence of midline shift, mass lesion, hemorrhage or acute infarction. No extra-axial f luid collections are seen. POSTERIOR FOSSA: The cerebellum and brainstem are intact. The 4th ventricle is midline. The cerebellopontine angle i s unremarkable. EXTRACRANIAL: The visualized portion of the orbits is intact. Minimal mucoperiosteal thickening in the right maxill lilia antra. SKULL: The calvaria is intact. No evidence of skull fracture. CONCLUSION: 1. Chronic changes with moderately severe periventricular small vessel ischemic demyelination and a p unctate old lacunar type infarcts bilaterally. 2. Minimal chronic sinus disease in the right maxillary antra 3. Nothing acute. Jin Mccarthy MD on December 12, 2016 at 5:16 Board Certified Radiologist. This report was verified electronically.
[2016-12-12] MEDS ORDERED: HEPARIN-D5W INJ 250 ML IV SCH (05:30)
[2016-12-12 05:35] LABS: APTT (PATIENT) 27.5 SEC (24.3-30.1); CREATINE KINASE 71 U/L (39-308); INTERNATIONAL NORMALIZED RATIO 0.9 RATIO
--- NOTE | 2016-12-12 05:39 | RADRPT ---
EXAM DATE/TIME: 12/12/2016 05:24 [facility] COMPARISON: CHEST SINGLE AP, October 29, 2016, 22:30. INDICATIONS : Stroke alert. MEDICAL HISTORY : Hypertension. Hypercholesterolemia. TIA. A-fib. SURGICAL HISTORY : None. ENCOUNTER: Initial ACUITY: 1 day PAIN SCORE: 0/10 LOCATION: Bilateral chest FINDINGS: A single view of the chest demonstrates the lungs to be symmetrically aerated without evidence of mas s, infiltrate or effusion. The cardiomediastinal contours are unremarkable. Osseous structures are intact with degenerative osteoarthritic changes in both shoulders, left greater than right. Degenerat rosette spurring in the dorsal spine. CONCLUSION: No acute cardiopulmonary process. Jin Mccarthy MD on December 12, 2016 at 5:37 Board Certified Radiologist. This report was verified electronically.
[2016-12-12] MEDS ORDERED: IOHEXOL 350 MG/ML 10 ML VIAL (for RAD DIAG) IV ONE (05:59)
[2016-12-12] MEDS ORDERED: ASPIRIN 325 MG TAB PO ONE (06:00)
--- NOTE | 2016-12-12 06:08 | RADRPT ---
EXAM DATE/TIME: 12/12/2016 05:52 [facility] COMPARISON: No previous studies available for comparison. INDICATIONS : Stroke alert, weakness and slurrred speech. IV CONTRAST: 97 cc Omnipaque 350 (iohexol) IV ; Cumulative dose for multiple exams. RADIATION DOSE: 28.41 CTDIvol (mGy) ; Reconstructed from previous dataset MEDICAL HISTORY : Cardiovascular disease. Hypertension. cva SURGICAL HISTORY : Appendectomy. ENCOUNTER: Initial ACUITY: 1 day PAIN SCALE: 0/10 LOCATION: cranial TECHNIQUE: Volumetric scanning was performed using a multi-row detector CT scanner. The data was post processed with a variety of visualization algorithms including full volume maximum intensity projection, multi -planar sliding thin slab reformation, curved planar reformation, and surface rendering techniques. Using automated exposure control and adjustment of the mA and/or kV according to patient size, radiat ion dose was kept as low as reasonably achievable to obtain optimal diagnostic quality images. FINDINGS: There is excellent visualization of the major intracranial arteries out to the second-order branch ve ssels. There is no evidence for aneurysm, vessel truncation or stenosis, and no evidence for vascula r malformation. Patient is left vertebral dominant. Both vertebrals are patent, however. CONCLUSION: 1. Intracranial vessels are all patent without aneurysmal disease. 2. Patient is left vertebral dominant.. Jin Mccarthy MD on December 12, 2016 at 6:05 Board Certified Radiologist. This report was verified electronically.
--- NOTE | 2016-12-12 07:03 | RADRPT ---
EXAM DATE/TIME: 12/12/2016 05:52 [facility] COMPARISON: CT BRAIN W/O CONTRAST, December 12, 2016, 4:55. CTA BRAIN W 3D RECON, December 12, 2016, 5:52. INDICATIONS : Stroke alert, weakness and slurred speech. IV CONTRAST: 97 cc Omnipaque 350 (iohexol) IV ; Cumulative dose for multiple exams. RADIATION DOSE: 28.41 CTDIvol (mGy) ; Combined studies MEDICAL HISTORY : Cardiovascular disease. Hypertension. cva SURGICAL HISTORY : Appendectomy. ENCOUNTER: Initial ACUITY: 1 day PAIN SCALE: 0/10 LOCATION: neck Elevated flow velocities and ICA/CCA ratios have been found to correlate with increased degrees of vessel stenosis, calculated as percentage of diameter relative to a normal segment of distal ICA/CCA. TECHNIQUE: Volumetric scanning was performed using a multirow detector CT scanner. The data was post processed with a variety of visualization algorithms including full-volume maximum intensity projection, multip lanar sliding thin-slab reformation, curved-planar reformation, and surface-rendering techniques. Us ing automated exposure control and adjustment of the mA and/or kV according to patient size, radiatio n dose was kept as low as reasonably achievable to obtain optimal diagnostic quality images. FINDINGS: AORTIC ARCH: There is a 2-vessel origin of the great vessels from the aorta. No evidence of ostial narrowing. The re is moderate focal stenosis of the proximal right subclavian artery narrowing to 2.8 mm in transver se dimension on axial image 33. RIGHT CAROTID: There is moderate calcific plaquing of the distal common carotid artery at the bifurcation and proxim al internal carotid artery. There is less than 50% stenosis by NASCET criteria. LEFT CAROTID: There is 1.8 cm segment of marked crescentic soft plaque deposition of the carotid bulb. This results in in 70% stenosis by NASCET criteria. VERTEBRALS: Dominant left vertebral artery is noted. There is moderate calcific plaquing bilateral vertebral prema ry origins, which are otherwise widely patent. CONCLUSION: 1. No evidence for hemodynamically significant stenosis of the right internal carotid artery, however there is a 70% stenosis on the left. 2. Moderate calcific plaquing of the bilateral vertebral artery origins and moderate focal stenosis r ight proximal subclavian artery noted. Kyle Willoughby MD on December 12, 2016 at 6:55 Board Certified Radiologist. This report was verified electronically.
[2016-12-12 07:45] LABS: BLOOD, URINE NEG (NEG); GLUCOSE,URINE NEG (NEG); KETONE, URINE NEG (NEG); NITRITE,URINE NEG (NEG); URINE COLOR LIGHT-YELLOW (YELLW/STRAW)
[2016-12-12 07:51] LABS: AMPHETAMINE, URINE NEG (NEG); BARBITURATES, URINE NEG (NEG); COCAINE, URINE NEG (NEG)
--- NOTE | 2016-12-12 08:14 | RADRPT ---
EXAM DATE/TIME: 12/12/2016 07:31 [facility] COMPARISON: CTA BRAIN W 3D RECON, December 12, 2016, 5:52. CT BRAIN W/O CONTRAST, December 12, 2016, 4:55. INDICATIONS : Right sided weakness. Slurred speech. MEDICAL HISTORY : Hypertension. SURGICAL HISTORY : Appendectomy. Tonsillectomy. ENCOUNTER: Initial ACUITY: 1 day PAIN SCORE: 0/10 LOCATION: cranial TECHNIQUE: Multiplanar, multisequence MRI of the brain was performed without contrast. FINDINGS: CEREBRUM: There is generalized atrophy. Ventricles are normal in size. No evidence of midline shift, mass lesi on, hemorrhage or acute infarction. No extraaxial fluid collections are seen. The pituitary gland a nd suprasellar cistern are normal in configuration. WHITE MATTER: There is moderate periventricular and subcortical white matter signal change bilaterally. POSTERIOR FOSSA: The cerebellum and brainstem demonstrate no acute finding. The 4th ventricle is midline. The cerebel lopontine angle is unremarkable. The cerebellar tonsils are normal in position. DIFFUSION IMAGING: No focal areas of restricted diffusion are seen. No evidence of acute infarction. EXTRACRANIAL: The visualized portions of the orbits and paranasal sinuses are unremarkable. CONCLUSION: 1. No acute intracranial abnormality is identified. There are no findings to indicate recent ischemia . 2. Moderate severity periventricular white matter signal changes characteristic of chronic microvascu lar ischemia. David Wilson MD on December 12, 2016 at 8:09 Board Certified Radiologist. This report was verified electronically.
--- NOTE | 2016-12-12 08:28 | HHI.HP ---
HPI Service [facility] Hospitalists Primary Care Physician Dr. Nevarez Admission Diagnosis CVA/stroke alert Chief Complaint: Right sided weakness Travel History International Travel<30 Days: No Contact w/Intl Traveler <30 Da: No Traveled to Known Affected Are: No History of Present Illness Mr Parekh is a pleasant 71 y/o WM with HTN, hyperlipidemia, diet controlled diabetes mellitus, and hx of paroxysmal atrial fibrillation. He was brought to the ED at [facility] on 12/12/16 after he woke up around 0300 this morning to go to the bathroom and was unable to get up and walk due to right LE weakness. He states that he had RUE weakness and aphasia as well. His reported a right sided facial droop. Pt was brought to the ED as a stroke alert. Pt reports that his symptoms lasted about an hour and then resolved. He was started on Heparin in the ED. 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 CTA of the head noted intracranial vessels are all patent without aneurysmal disease. 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 Brain MRI did not reveal any acute intracranial abnormality or any findings to indicate recent ischemia. Pt denies any previous similar symptoms or known hx of TIA/CVA. He has a hx of paroxysmal atrial fibrillation but is currently in NSR. He states that he was on Coumadin at one point but was taken off of it several years ago. He denies any headache, visual changes, nausea/vomiting, chest pain, SOB or palpitations. Review of Systems Constitutional: DENIES: Diaphoretic episodes, Fever, Chills, Night Sweats Eyes: DENIES: Vision loss Ears, nose, mouth, throat: DENIES: Hearing loss Respiratory: DENIES: Cough, Shortness of breath Cardiovascular: DENIES: Chest pain, Palpitations, Lower Extremity Edema Gastrointestinal: DENIES: Abdominal pain, Constipation, Diarrhea, Nausea, Reflux, Vomiting Musculoskeletal: DENIES: Back pain, Neck pain Integumentary: DENIES: Rash Neurologic: COMPLAINS OF: Localized weakness, Speech Problems, Poor Balance Psychiatric: DENIES: Confusion Past Family Social History Past Medical History GERD HTN Hyperlipidemia Hiatal hernia Dysphagia Bilateral cataracts Paroxysmal atrial fib Diabetes mellitus, diet controlled, Hgb A1C 6.2% in 07/2016 Past Surgical History Appendectomy Tonsillectomy Reported Medications Metoprolol Tartrate 50 Mg PO DAILY Crestor 40 Mg PO DAILY Aspirin 81 Mg CHEW DAILY Allergies: Coded Allergies: Amoxicillin (Verified Allergy, Severe, ITCHING, 12/12/16) Bee Sting (Verified Allergy, Mild, ITCHING BENADRYL STOPS ITCHING, 12/12/16) Family History Mother with hx of CAD, at age 84 Social History (+)Tobacco use, smokes 1/2ppd x 50+ years (+)Alcohol use, beer on the weekends Physical Exam Vital Signs Vital Signs Date Time Temp Pulse Resp B/P Pulse Ox O2 Delivery O2 Flow Rate FiO2 12/12/16 07:14 67 17 171/74 100 Nasal Cannula 2 12/12/16 05:12 97.2 80 18 130/84 99 12/12/16 05:08 99 Room Air 12/12/16 05:08 99 Room Air 12/12/16 04:57 99 Nasal Cannula 3.00 12/12/16 04:40 98 3.00 Physical Exam GENERAL: This is a well-nourished, well-developed patient, in no apparent distress. SKIN: No rashes, ecchymoses or lesions. Cool and dry. HEENT: Atraumatic. Normocephalic. No temporal or scalp tenderness. No scleral icterus. Airway patent. NECK: Trachea midline, left carotid bruit. CARDIO: Regular RESP: CTA bilaterally. No wheezes, rales, or rhonchi. ABD: +BS, soft, non-tender, nondistended. EXT: Extremities without clubbing, cyanosis, or edema. NEURO: Awake and alert. Cranial nerves II through XII intact. Motor and sensory grossly within normal limits. Five out of 5 muscle strength in all muscle groups. Normal speech. Laboratory Laboratory Tests Test 12/12/16 12/12/16 03:55 07:25 White Blood Count 10.3 Red Blood Count 4.71 Hemoglobin 14.2 Bedside Hemoglobin 14.6 Hematocrit 42.0 Bedside Hematocrit 43.0 Mean Corpuscular Volume 89.2 Mean Corpuscular Hemoglobin 30.1 Mean Corpuscular Hemoglobin 33.7 Concent Red Cell Distribution Width 14.8 Platelet Count 158 Mean Platelet Volume 10.3 Neutrophils (%) (Auto) 45.9 Lymphocytes (%) (Auto) 40.7 Monocytes (%) (Auto) 8.4 Eosinophils (%) (Auto) 4.1 Basophils (%) (Auto) 0.9 Neutrophils # (Auto) 4.7 Lymphocytes # (Auto) 4.2 Monocytes # (Auto) 0.9 Eosinophils # (Auto) 0.4 Basophils # (Auto) 0.1 CBC Comment DIFF FINAL Differential Comment Prothrombin Time 10.0 Prothromb Time International 0.9 Ratio Activated Partial 27.5 Thromboplast Time Fibrinogen 377 Bedside Sodium 142 Bedside Potassium 3.8 Bedside Chloride 104 Bedside Blood Urea Nitrogen 16 Bedside Creatinine 1.1 Bedside Glucose 91 Total Creatine Kinase 71 Troponin I LESS THAN 0.02 Blood Type O POSITIVE Antibody Screen NEGATIVE Blood Bank Comment Urine Color LIGHT-YELLOW Urine Turbidity CLEAR Urine pH 7.0 Urine Specific [place] 1.022 Urine Protein NEG Urine Glucose (UA) NEG Urine Ketones NEG Urine Occult Blood NEG Urine Nitrite NEG Urine Bilirubin NEG Urine Urobilinogen LESS THAN 2.0 Urine Leukocyte Esterase NEG Urine RBC LESS THAN 1 Urine WBC LESS THAN 1 Urine Opiates Screen NEG Urine Barbiturates Screen NEG Urine Amphetamines Screen NEG Urine Benzodiazepines Screen NEG Urine Cocaine Screen NEG Urine Cannabinoids Screen NEG Result Diagram: 12/12/16354 Imaging Last Impressions Neck CTA 12/12/16525 Signed Impressions: Service Date/Time: Monday, December 12, 2016 05:52 - CONCLUSION: 1. No evidence for hemodynamically significant stenosis of the right internal carotid artery, however there is a 70%% stenosis on the left. 2. Moderate calcific plaquing of the bilateral vertebral artery origins and moderate focal stenosis right proximal subclavian artery noted. Kyle Willoughby MD Head CTA 12/12/16525 Signed Impressions: Service Date/Time: Monday, December 12, 2016 05:52 - CONCLUSION: 1. Intracranial vessels are all patent without aneurysmal disease. 2. Patient is left vertebral dominant.. Jin Mccarthy MD Brain MRI 12/12/16525 Signed Impressions: Service Date/Time: Monday, December 12, 2016 07:31 - CONCLUSION: 1. No acute intracranial abnormality is identified. There are no findings to indicate recent ischemia. 2. Moderate severity periventricular white matter signal changes characteristic of chronic microvascular ischemia. David Wilson MD Head CT 12/12/16 0000 Signed Impressions: Service Date/Time: Monday, December 12, 2016 04:55 - CONCLUSION: 1. 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 2. Minimal chronic sinus disease in the right maxillary antra 3. Nothing acute. Jin Mccarthy MD Chest X-Ray 12/12/16 0000 Signed Impressions: Service Date/Time: Monday, December 12, 2016 05:24 - CONCLUSION: No acute cardiopulmonary process. Jin Mccarthy MD L Septic Shock Reassessment Heart: Regular rate and rhythm Lungs: Clear Skin: Warm Assessment and Plan Problem List: (1) TIA (transient ischemic attack) Status: Acute Plan: - Pt admitted with right sided weakness and aphasia noted upon awakening around 0300 this morning. - His symptoms lasted about an hour and then resolved. 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 - CTA of the head noted intracranial vessels are all patent without aneurysmal disease. 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 - Brain MRI did not reveal any acute intracranial abnormality or any findings to indicate recent ischemia. - Neurology is following. - Heparin was started in the ED and this will be stopped. - Cont. ASA 325mg po daily - Consult Vascular Surgery for left carotid artery stenosis - Pt is HOB flat - Permissive HTN - 2D echo - IVF - PT evaluation when able to ambulate per Neurology - Lipid panel in AM - Cont. statin - Tobacco cessation - Supportive care - DVT prophylaxis with SCDs (2) History of atrial fibrillation Status: Resolved Plan: - Pt with a hx of paroxysmal atrial fibrillation - He is currently in NSR - Telemetry (3) Hypertension Status: Chronic Plan: - Hold on resuming home meds to allow for permissive HTN - Clonidine PRN for systolic BP over 220 (4) Hyperlipidemia Status: Chronic Plan: - Cont. home meds (5) Tobacco use Status: Chronic Plan: - Tobacco cessation - Nicotine patch Assessment and Plan Patient examined. Assessment and plan formulated with Lidia Arrieta PA-C. I agree with the above. cva sx's with no new infarct on imaging. left carotid 70% dz. neuro and vascular consulted. ivf. d/c heparin.hob flat permissive htn Physician Certification 2 Midnight Certification Type: Admission for Inpatient Services Order for Inpatient Services The services are ordered in accordance with Medicare regulations or non- Medicare payer requirements, as applicable. In the case of services not specified as inpatient-only, they are appropriately provided as inpatient services in accordance with the 2-midnight benchmark. Estimated LOS (days): 2 2 days is the estimated time the patient will need to remain in the hospital, assuming treatment plan goals are met and no additional complications. Post-Hospital Plan: Not yet determined Lidia Arrieta Dec 12, 2016 08:28 Donn Lees MD Dec 12, 2016 13:54
--- NOTE | 2016-12-12 09:39 | EKG ---
Date Performed: 12/12/2016 Time Performed: 05:12:55 PTAGE: 71 years EKG: Sinus rhythm RIGHT BUNDLE BRANCH BLOCK ABNORMAL ECG NO PREVIOUS TRACING DOCTOR: Jose Alejandro Billy Interpretating Date/Time 12/12/2016 09:38:32
[2016-12-12] MEDS ORDERED: NICOTINE 14 MG/24 HR PATCH TD ONE (10:15)
--- NOTE | 2016-12-12 10:37 | MB ---
cc: ANAHI JOHNSON DATE OF CONSULTATION 12/12/2016 REASON FOR CONSULTATION Stroke Alert. HISTORY OF PRESENT ILLNESS Mr. Parekh is a 71-year-old male with past medical history of hypertension, atrial fibrillation, TIA, who presented to the emergency room early this morning, brought by EMS as a Stroke Alert. The patient woke up at 03:45, noted he was having a right facial droop with difficulty in speaking. He was not able to think of the words and he noticed right arm weakness. He had gone to bed at midnight; this was the last time he was seen normal. The noted that there was worsening of the right-sided deficits involving the right leg as well. He denies headache, double vision, blurred vision, chest pain, shortness of breath, disorientation or loss of sphincter control. The patient states that he was on warfarin but this was stopped, "years ago". Currently on aspirin [address] scan without contrast done at the emergency room showed chronic changes with moderately severe periventricular small vessel ischemic demyelination and punctate old lacunar infarct bilateral with minimal chronic sinus disease on the right maxillary antrum. No acute intracranial abnormalities. Neurologist soil conservation technician was called and they felt that the patient is outside the window of IV t- PA and recommended to start the patient on IV heparin and initiate the workup for stroke. REVIEW OF SYSTEMS A 12-point review of systems is negative except for what is stated in the HPI. PAST MEDICAL HISTORY 1. Atrial fibrillation. 2. Hyperlipidemia. 3. TIA in 2012. 4. Hypertension, PAST SURGICAL HISTORY Appendectomy. Tonsillectomy. SOCIAL HISTORY Denies alcohol or substance abuse but smokes half-a-pack for 40 years. ALLERGIES AMOXICILLIN. BEE STINGS. MEDICATIONS 1. Aspirin 81 mg. 1. Crestor. 2. Metoprolol 50 mg. PHYSICAL EXAMINATION GENERAL: Awake, alert, oriented, good historian. Not in acute distress. HEENT: Normocephalic, atraumatic. Intact hearing and intact vision. NECK: Supple, soft left carotid bruit. CARDIOVASCULAR: Regular rate and rhythm. Bradycardia. RESPIRATORY: Clear to auscultation. No wheezes. MUSCULOSKELETAL: No cyanosis, no edema. NEUROLOGICAL: Awake, alert, oriented to time, person and place. Intact memory. Cranial nerves II-XII are grossly intact but for very supple right facial palsy. No arm drift. 5/5 bilateral, symmetrical. No abnormal movements. Normal tone. Intact speech. Intact speech content. No dysphasia. Sensation intact bilateral and symmetrical. Cerebellar functions are bilateral and symmetrical. Intact reflexes, 2+ bilateral and symmetrical. Plantars are bilaterally downgoing. LABORATORY DATA White blood cells 10.3, hemoglobin 14.2, platelet count 158. INR 0.9, sodium 142, potassium 3.8, BUN 16, creatinine 1.1. Troponin less than 0.02. DIAGNOSTIC IMAGING - Head CT scan without contrast, revealed chronic changes with moderately severe periventricular small vessel ischemic demyelination and punctate old lacunar infarct bilateral. Mild chronic sinus disease of the right maxillary antra. Nothing acute. - Brain MRI without contrast revealed no acute intracranial abnormality presently identified. There are no findings to indicate recent ischemia. Moderate severity periventricular white matter, signal changes characteristic of chronic microvascular ischemia. - CTA brain with IV contrast revealed intracranial vessels are all patent without aneurysmal disease. The patient is left vertebral dominant. - CTA neck with IV contrast revealed no evidence of hemodynamically significant stenosis of the right ICA. However, there is 70% stenosis on the left. Moderate calcific plaquing of the bilateral vertebral artery origins and moderate focal stenosis, right proximal subclavian artery noted. DIAGNOSTIC IMPRESSION - TIA. Symptoms have resolved with in an hour Likely etiology is left carotid stenosis. Another possible etiology is chronic A -fib; however, the patient is currently in sinus rhythm, 52 beats per minute, regular. - Hypertension. - Hyperlipidemia. PLAN - Neuro checks q. 1 hourly. - Aspirin 325 mg daily. - No need to be on anticoagulation at this time as the patient is in sinus rhythm and there is no indication for anticoagulation with anterior circulation TIA. - Telemetry. - Cardiac echo. - Consult Vascular Surgery. Recommendations are appreciated. - SCD prophylaxis. - GI prophylaxis. Thank you for the opportunity to participate in the care of the patient. MD GLENDY Zelaya/FERNANDO /9:32 AM /10:04 AM YUDY
[2016-12-12 11:36] LABS: HEMATOCRIT 43.3 % (39.0-51.0); MEAN CELL VOLUME 90.1 FL (80.0-100.0); MEAN CORPUSCULAR HEMOGLOBIN 29.8 PG (27.0-34.0); MEAN CORPUSCULAR HGB CONC 33.1 % (32.0-36.0); PLATELET COUNT 140 TH/MM3 (150-450); RED BLOOD COUNT 4.81 MIL/MM3 (4.50-5.90); RED CELL DISTRIBUTION WIDTH 14.8 % (11.6-17.2); REVIEW FLAG FINAL; WHITE BLOOD COUNT 7.7 TH/MM3 (4.0-11.0)
[2016-12-12 11:44] LABS: APTT (PATIENT) 35.5 SEC (24.3-30.1)
[2016-12-12] MEDS: ATORVASTATIN 80 MG TAB PO SCH (12:46)
[2016-12-12] MEDS ORDERED: ACETAMINOPHEN 325 MG TAB PO PRN (13:30)
[2016-12-12] MEDS ORDERED: ENALAPRILAT 1.25 MG/ML VIAL IV PUSH PRN (13:30)
[2016-12-12] MEDS ORDERED: ONDANSETRON HCL 4 MG/2 ML VIAL IV PRN (13:30)
--- NOTE | 2016-12-12 14:33 | PD.CAR.PN ---
CVT Progress Note Subjective/Hospital Course: Referral received Full evaluation and consult to follow Andrew Hoover Objective: Vital Signs Date Time Temp Pulse Resp B/P Pulse Ox O2 Delivery O2 Flow Rate FiO2 12/12/16 11:20 63 17 136/70 96 Room Air 12/12/16 07:14 67 17 171/74 100 Nasal Cannula 2 12/12/16 05:12 97.2 80 18 130/84 99 12/12/16 05:08 99 Room Air 12/12/16 05:08 99 Room Air 12/12/16 04:57 99 Nasal Cannula 3.00 12/12/16 04:40 98 3.00 Labs: Laboratory Tests Test 12/12/16 12/12/16 12/12/16 03:55 07:25 11:08 White Blood Count 10.3 TH/MM3 7.7 TH/MM3 (4.0-11.0) (4.0-11.0) Red Blood Count 4.71 MIL/MM3 4.81 MIL/MM3 (4.50-5.90) (4.50-5.90) Hemoglobin 14.2 GM/DL 14.3 GM/DL (13.0-17.0) (13.0-17.0) Bedside Hemoglobin 14.6 G/DL (12.0-17.0) Hematocrit 42.0 % 43.3 % (39.0-51.0) (39.0-51.0) Bedside Hematocrit 43.0 % (38.0-51.0) Mean Corpuscular Volume 89.2 FL 90.1 FL (80.0-100.0) (80.0-100.0) Mean Corpuscular Hemoglobin 30.1 PG 29.8 PG (27.0-34.0) (27.0-34.0) Mean Corpuscular Hemoglobin 33.7 % 33.1 % Concent (32.0-36.0) (32.0-36.0) Red Cell Distribution Width 14.8 % 14.8 % (11.6-17.2) (11.6-17.2) Platelet Count 158 TH/MM3 140 TH/MM3 (150-450) (150-450) Mean Platelet Volume 10.3 FL 10.4 FL (7.0-11.0) (7.0-11.0) Neutrophils (%) (Auto) 45.9 % (16.0-70.0) Lymphocytes (%) (Auto) 40.7 % (9.0-44.0) Monocytes (%) (Auto) 8.4 % (0.0-8.0) Eosinophils (%) (Auto) 4.1 % (0.0-4.0) Basophils (%) (Auto) 0.9 % (0.0-2.0) Neutrophils # (Auto) 4.7 TH/MM3 (1.8-7.7) Lymphocytes # (Auto) 4.2 TH/MM3 (1.0-4.8) Monocytes # (Auto) 0.9 TH/MM3 (0-0.9) Eosinophils # (Auto) 0.4 TH/MM3 (0-0.4) Basophils # (Auto) 0.1 TH/MM3 (0-0.2) CBC Comment DIFF FINAL Differential Comment Prothrombin Time 10.0 SEC (9.8-11.6) Prothromb Time International 0.9 RATIO Ratio Activated Partial 27.5 SEC 35.5 SEC Thromboplast Time (24.3-30.1) (24.3-30.1) Fibrinogen 377 mg/dL (227-377) Bedside Sodium 142 MMOL/L (138-146) Bedside Potassium 3.8 MMOL/L (3.5-4.9) Bedside Chloride 104 MMOL/L (98-109) Bedside Blood Urea Nitrogen 16 MG/DL (8-26) Bedside Creatinine 1.1 MG/DL (0.8-1.3) Bedside Glucose 91 MG/DL (60-95) Total Creatine Kinase 71 U/L (39-308) Troponin I LESS THAN 0.02 NG/ML (0.02-0.05) Blood Type O POSITIVE Antibody Screen NEGATIVE Blood Bank Comment Urine Color LIGHT-YELLOW (YELLW/STRAW) Urine Turbidity CLEAR (CLEAR) Urine pH 7.0 (5.0-8.5) Urine Specific [place] 1.022 (1.002-1.035) Urine Protein NEG mg/dL (NEG-TRACE) Urine Glucose (UA) NEG mg/dL (NEG) Urine Ketones NEG mg/dL (NEG) Urine Occult Blood NEG (NEG) Urine Nitrite NEG (NEG) Urine Bilirubin NEG (NEG) Urine Urobilinogen LESS THAN 2.0 MG/DL (LESS THAN 2.0) Urine Leukocyte Esterase NEG (NEG) Urine RBC LESS THAN 1 /hpf (0-3) Urine WBC LESS THAN 1 /hpf (0-5) Urine Opiates Screen NEG (NEG) Urine Barbiturates Screen NEG (NEG) Urine Amphetamines Screen NEG (NEG) Urine Benzodiazepines Screen NEG (NEG) Urine Cocaine Screen NEG (NEG) Urine Cannabinoids Screen NEG (NEG) Result Diagram: 12/12/16 1108 Dagmar Cruz MD Dec 12, 2016 14:33
[2016-12-12 15:21] LABS: APTT (PATIENT) 27.8 SEC (24.3-30.1)
[2016-12-12] MEDS ORDERED: CHLORHEXIDINE GLUCONATE 2 % 1 PACK (2 CLOTHS)(extra cloths) TOP PRN (17:45)
[2016-12-12] MEDS: CLOPIDOGREL 75 MG TAB PO SCH (20:45)
--- NOTE | 2016-12-12 22:37 | MB ---
cc: DAGMAR PEREZ MD DATE OF CONSULTATION 12/12/[address] Perez / vascular surgery. REASON FOR CONSULTATION Left carotid stenosis and transient ischemic attack. 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 He said he was unable to think and then he noted right arm weakness. He somehow alerted his and at this point noted that he had weakness of the right arm, right leg, slurred speech, and weakness of the right corner of the mouth. The patient was transferred to the hospital and throughout was disoriented, losing center control. By the time he got to the hospital the patient was doing better and CT of the brain and MRI of the brain only showed old lacunar infarcts from the past. No acute abnormality was noted. The patient was outside the window of tPA and had improved anyway. On the workup was found to have left internal carotid artery stenosis, and hence the consultation. PAST MEDICAL HISTORY Is that of: 1. Hypertension. 2. Transient ischemic attack in 2012. 3. Hyperlipidemia. 4. History of atrial fibrillation. PAST SURGICAL HISTORY Is that of: 1. Tonsillectomy. 2. Appendectomy. SOCIAL HISTORY The patient does not drink, and smokes about one-half pack a day since his . MEDICATIONS Can be found on the record. PHYSICAL EXAMINATION GENERAL: Reveals a pleasant 71-year-old gentleman, now fully recovered. HEENT: Normocephalic. No trauma to the head. Pupils equally reactive. Extraocular muscles intact. He has a minimal right facial droop but no other symptoms whatsoever. NECK: Bilateral carotid pulses and actually the patient does have about 3 through 6 carotid bruit. This would be hard to pickup had I not known the patient would have a carotid stenosis I must admit. HEART: The patient is not in A fib right now, he is in regular rhythm. LUNGS: Bilateral breath sounds. No wheezing. No rhonchi. ABDOMEN: Soft. Active bowel sounds. EXTREMITIES: The patient has good proximal and distal pulses on palpation. No acute or chronic vascular deficit noted. BACK: Normal. NEUROLOGICAL: The patient is normally oriented. Preston coma scale is 15. Cranial nerves II through XII normal. A very slight facial droop and right-sided facial palsy. Bilateral motorically intact. No lateralization. RECOMMENDATIONS I reviewed laboratory and diagnostic procedures. This gentleman had right-sided hemiparesis caused by a left hemispheric ischemia and CTA confirms hemodynamically significant left internal carotid artery stenosis of about 70%. Looking at the CT scan it is probably a little higher than that. At this point the patient has recovered and in the absence of any untoward findings, the patient should have basic cardiac workup and we should shoot for carotid endarterectomy by the end of the week. This is symptomatic, the patient with critical stenosis and there is no reason to delay the therapy. I have explained this to the patient. I explained to him also risks and benefits of the same and we will plan to do surgery or Sunday. Thank you much for the referral. Critical care 40 minutes. Dagmar ARMSTRONG /8:31 PM /10:26 PM
[2016-12-13] VITALS (29 sets, daily range): BP systolic 119–157; BP diastolic 68–91; PULSE 54–80; RESP 18–20; TEMP 97.8–98.6; O2SAT 95–99
[2016-12-13] MEDS: CHLORHEXIDINE GLUCONATE 2 % 1 PACK (2 CLOTHS)(taper/protocol) TOP SCH (04:00)
[2016-12-13 06:52] LABS: HDL CHOLESTEROL 38.1 MG/DL (40.0-60.0)
--- NOTE | 2016-12-13 08:24 | EC ---
Study Study Date:12/13/2016 STUDY CONCLUSIONS SUMMARY - Left ventricle: The cavity size was normal. Wall thickness was normal. Systolic function was normal. The estimated ejection fraction was in the range of 55% to 60%. Doppler parameters are consistent with abnormal left ventricular relaxation (grade 1 diastolic dysfunction). - Aortic valve: There is aortic valve sclerosis. Mild regurgitation. - Mitral valve: Mildly calcified annulus. If LV function is below 40, please consider prescribing an ACEI or ARB or document rationale for non-use. PROCEDURE DATA STUDY STATUS: Elective. Procedure: Transthoracic echocardiography. Image quality was good. Scanning was performed from the parasternal, apical, and subcostal acoustic windows. Study completion: The patient tolerated the procedure well. Transthoracic echocardiography. M-mode, complete 2D, complete spectral Doppler, and color Doppler. Patient status: Inpatient. CARDIAC ANATOMY LEFT VENTRICLE: The cavity size was normal. Wall thickness was normal. There was no hypertrophy. Systolic function was normal. The estimated ejection fraction was in the range of 55% to 60%. Doppler parameters are consistent with abnormal left ventricular relaxation (grade 1 diastolic dysfunction). AORTIC VALVE: Probably trileaflet; mildly calcified leaflets. Doppler: There is aortic valve sclerosis. Mild regurgitation. Mean gradient: 8mm Hg (S). Peak gradient: 19mm Hg (S). MITRAL VALVE: Mildly calcified annulus. Doppler: There was no evidence for stenosis. No significant regurgitation. LEFT ATRIUM: The atrium was normal in size. RIGHT VENTRICLE: The cavity size was normal. Systolic function was normal. PULMONIC VALVE: Not well visualized. Doppler: There was no evidence for stenosis. No significant regurgitation. TRICUSPID VALVE: The valve appears to be grossly normal. Doppler: There was no evidence for stenosis. Trace regurgitation. PERICARDIUM: There was no pericardial effusion. BASIC MEASUREMENTS ADULT Normal Left ventricle LV internal dimension, ED, chordal level, *42.6 mm 43-52 PLAX LV internal dimension, ES, chordal level, 32.3 mm 23-38 PLAX Fractional shortening, chordal level, PLAX *24 % >29 LV posterior wall thickness, ED 5.36 mm IVS/LVPW ratio, ED *1.6 <1.3 Ventricular septum Septal thickness, ED 8.58 mm Left atrium Anterior-posterior dimension 32 mm Right ventricle RV internal dimension, ED, PLAX 22.3 mm 19-38 DOPPLER MEASUREMENTS ADULT Normal Main pulmonary artery Pressure, S 20 mm Hg =30 Aortic valve Peak velocity, S 216 cm/s Mean velocity, S 129 cm/s VTI, S 50.9 cm Mean gradient, S 8 mm Hg Peak gradient, S 19 mm Hg Mitral valve Peak E-wave velocity 61.2 cm/s Peak A-wave velocity 76.5 cm/s Peak E/A ratio 0.8 Tricuspid valve Regurgitant peak velocity 194 cm/s Peak RV-RA gradient, S 15 mm Hg Maximal regurgitant velocity 194 cm/s Systemic veins Estimated CVP 5 mm Hg Right ventricle RV pressure, S 20 mm Hg <30 LEGEND: Mean values are shown as u=mean value. Asterisk (*) stokes values outside specified normal range. Prepared and signed by Francisco Salinas [id number]
--- NOTE | 2016-12-13 08:46 | HHI.PR ---
Subjective Remarks right hemiparesis and aphasia resolved. Objective Vitals heart reg lung cta abd abd s/nt ext no edema Vital Signs Date Time Temp Pulse Resp B/P Pulse Ox O2 Delivery O2 Flow Rate FiO2 12/13/16 07:54 59 12/13/16 07:20 97.8 59 18 119/68 97 12/13/16 06:13 59 12/13/16 05:06 64 12/13/16 04:27 57 12/13/16 03:45 98.2 64 20 140/76 98 12/13/16 03:16 62 12/13/16 02:00 54 12/13/16 01:00 58 12/13/16 00:00 60 12/12/16 23:42 92 12/12/16 23:00 62 12/12/16 23:00 98.0 60 20 152/79 96 12/12/16 22:00 60 12/12/16 21:00 62 12/12/16 20:00 68 12/12/16 19:00 97.4 62 17 155/75 96 12/12/16 19:00 58 12/12/16 18:00 61 12/12/16 16:00 98.6 57 19 128/61 95 12/12/16 16:00 57 12/12/16 14:00 58 12/12/16 12:05 52 12/12/16 12:05 98.3 51 20 160/75 97 12/12/16 11:20 63 17 136/70 96 Room Air 12/12/16 12/12/16 12/13/16 15:00 23:00 07:00 Intake Total 480 ml Output Total 400 ml Balance -400 ml 480 ml Intake Oral 480 ml Output Urine Total 400 ml # Voids 4 Result Diagram: 12/12/16 1108 Imaging Last Impressions Neck CTA 12/12/16525 Signed Impressions: Service Date/Time: Monday, December 12, 2016 05:52 - CONCLUSION: 1. No evidence for hemodynamically significant stenosis of the right internal carotid artery, however there is a 70%% stenosis on the left. 2. Moderate calcific plaquing of the bilateral vertebral artery origins and moderate focal stenosis right proximal subclavian artery noted. Kyle Willoughby MD Head CTA 12/12/16525 Signed Impressions: Service Date/Time: Monday, December 12, 2016 05:52 - CONCLUSION: 1. Intracranial vessels are all patent without aneurysmal disease. 2. Patient is left vertebral dominant.. Jin Mccarthy MD Brain MRI 12/12/16 0526 Signed Impressions: Service Date/Time: Monday, December 12, 2016 07:31 - CONCLUSION: 1. No acute intracranial abnormality is identified. There are no findings to indicate recent ischemia. 2. Moderate severity periventricular white matter signal changes characteristic of chronic microvascular ischemia. David Wilson MD Head CT 12/12/16 0000 Signed Impressions: Service Date/Time: Monday, December 12, 2016 04:55 - CONCLUSION: 1. 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 2. Minimal chronic sinus disease in the right maxillary antra 3. Nothing acute. Jin Mccarthy MD Chest X-Ray 12/12/16 0000 Signed Impressions: Service Date/Time: Monday, December 12, 2016 05:24 - CONCLUSION: No acute cardiopulmonary process. Jin Mccarthy MD L A/P Problem List: (1) TIA (transient ischemic attack) Status: Acute Plan: - Pt admitted with right sided weakness and aphasia noted upon awakening - His symptoms lasted about an hour and then resolved. 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 - CTA of the head noted intracranial vessels are all patent without aneurysmal disease. 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 - Brain MRI did not reveal any acute intracranial abnormality or any findings to indicate recent ischemia. seen by neurology and vascular plan for left cea in 1 to 2 days cont antiplt and statin supportive care dvt prophylaxis f/u 2d echo (2) History of atrial fibrillation Status: Resolved Plan: - Pt with a hx of paroxysmal atrial fibrillation - He is currently in NSR - Telemetry (3) Hypertension Status: Chronic Plan: - home meds held. (4) Hyperlipidemia Status: Chronic Plan: - Cont. home meds (5) Tobacco use Status: Chronic Plan: - Tobacco cessation - Nicotine patch Donn Lees MD Dec 13, 2016 08:46
[2016-12-13] MEDS ORDERED: ASPIRIN EC 325 MG TABEC PO SCH (09:00)
[2016-12-13] MEDS: NICOTINE 14 MG/24 HR PATCH TD SCH ×3 (09:00→23:32)
[2016-12-13] MEDS: CLOPIDOGREL 75 MG TAB PO SCH (09:23)
[2016-12-13] MEDS: ATORVASTATIN 80 MG TAB PO SCH (09:23)
[2016-12-13] MEDS: REMOVE OLD PATCH TD SCH (09:27)
--- NOTE | 2016-12-13 16:52 | PD.CAR.PN ---
CVT Progress Note Subjective/Hospital Course: Referral received Full evaluation and consult to follow Andrew J 12/13/16 Patient doing well neurologically fully intact Discussed with Dr. Jones. All things equal, patient should be candidate for left carotid endarterectomy at this admission and no delay is necessary We'll proceed with left carotid endarterectomy Sunday morning Objective: Vital Signs Date Time Temp Pulse Resp B/P Pulse Ox O2 Delivery O2 Flow Rate FiO2 12/13/16 16:00 61 12/13/16 15:00 56 12/13/16 15:00 97.9 62 20 151/77 97 12/13/16 14:00 60 12/13/16 13:00 58 12/13/16 12:00 59 12/13/16 11:45 97.9 65 18 142/68 96 12/13/16 11:02 80 12/13/16 10:00 70 12/13/16 09:48 99 21 12/13/16 09:01 60 12/13/16 09:00 58 12/13/16 08:00 58 12/13/16 07:54 59 12/13/16 07:20 97.8 59 18 119/68 97 12/13/16 06:13 59 12/13/16 05:06 64 12/13/16 04:27 57 12/13/16 03:45 98.2 64 20 140/76 98 12/13/16 03:16 62 12/13/16 02:00 54 12/13/16 01:00 58 12/13/16 00:00 60 12/12/16 23:42 92 12/12/16 23:00 62 12/12/16 23:00 98.0 60 20 152/79 96 12/12/16 22:00 60 12/12/16 21:00 62 12/12/16 20:00 68 12/12/16 19:00 97.4 62 17 155/75 96 12/12/16 19:00 58 12/12/16 18:00 61 Result Diagram: 12/12/16 1108 Dagmar Cruz MD Dec 13, 2016 16:52
[2016-12-14] VITALS (19 sets, daily range): BP systolic 142–154; BP diastolic 83–93; PULSE 66–80; RESP 17–20; TEMP 97.8–98.3; O2SAT 93–97
[2016-12-14] MEDS: CHLORHEXIDINE GLUCONATE 2 % 1 PACK (2 CLOTHS)(taper/protocol) TOP SCH (04:00)
--- NOTE | 2016-12-14 08:01 | HHI.PR ---
Subjective Remarks no complaints no weakness Objective Vitals heart reg lung cta abd s/nt ext no edema Vital Signs Date Time Temp Pulse Resp B/P Pulse Ox O2 Delivery O2 Flow Rate FiO2 12/14/16 07:00 68 12/14/16 06:13 70 12/14/16 05:33 74 12/14/16 04:54 75 12/14/16 03:39 97.8 78 17 147/86 97 12/14/16 03:00 70 12/14/16 02:00 72 12/14/16 01:00 68 12/14/16 00:00 66 12/13/16 23:00 98.5 66 20 157/91 95 12/13/16 23:00 68 12/13/16 22:00 60 12/13/16 21:00 62 12/13/16 20:00 68 12/13/16 19:00 98.6 62 20 152/85 95 12/13/16 19:00 69 12/13/16 18:00 75 12/13/16 17:00 62 12/13/16 16:00 61 12/13/16 15:00 56 12/13/16 15:00 97.9 62 20 151/77 97 12/13/16 14:00 60 12/13/16 13:00 58 12/13/16 12:00 59 12/13/16 11:45 97.9 65 18 142/68 96 12/13/16 11:02 80 12/13/16 10:00 70 12/13/16 09:48 99 21 12/13/16 09:01 60 12/13/16 09:00 58 12/13/16 12/13/16 12/14/16 15:00 23:00 07:00 Intake Total 480 ml 240 ml Balance 480 ml 240 ml Intake Oral 480 ml 240 ml # Voids 3 3 # Bowel Movements 1 Result Diagram: 12/12/16 1108 Imaging Last Impressions Neck CTA 12/12/16 0542 Signed Impressions: Service Date/Time: Monday, December 12, 2016 05:52 - CONCLUSION: 1. No evidence for hemodynamically significant stenosis of the right internal carotid artery, however there is a 70%% stenosis on the left. 2. Moderate calcific plaquing of the bilateral vertebral artery origins and moderate focal stenosis right proximal subclavian artery noted. Kyle Willoughby MD Head CTA 12/12/16525 Signed Impressions: Service Date/Time: Monday, December 12, 2016 05:52 - CONCLUSION: 1. Intracranial vessels are all patent without aneurysmal disease. 2. Patient is left vertebral dominant.. Jin Mccarthy MD Brain MRI 12/12/16525 Signed Impressions: Service Date/Time: Monday, December 12, 2016 07:31 - CONCLUSION: 1. No acute intracranial abnormality is identified. There are no findings to indicate recent ischemia. 2. Moderate severity periventricular white matter signal changes characteristic of chronic microvascular ischemia. David Wilson MD Head CT 12/12/16 Signed Impressions: Service Date/Time: Monday, December 12, 2016 04:55 - CONCLUSION: 1. 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 2. Minimal chronic sinus disease in the right maxillary antra 3. Nothing acute. Jin Mccarthy MD Chest X-Ray 12/12/16 Signed Impressions: Service Date/Time: Monday, December 12, 2016 05:24 - CONCLUSION: No acute cardiopulmonary process. Jin Mccarthy MD L A/P Problem List: (1) TIA (transient ischemic attack) Status: Acute Plan: - Pt admitted with right sided weakness and aphasia noted upon awakening - His symptoms lasted about an hour and then resolved. 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 - CTA of the head noted intracranial vessels are all patent without aneurysmal disease. 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 - Brain MRI did not reveal any acute intracranial abnormality or any findings to indicate recent ischemia. - 2d echo- grade 1 diastolic dysfunction seen by neurology and vascular plan for left cea tomorrow. hopefully dc by Sunday cont antiplt and statin supportive care dvt prophylaxis (2) History of atrial fibrillation Status: Resolved Plan: - Pt with a hx of paroxysmal atrial fibrillation - He is currently in NSR - Telemetry (3) Hypertension Status: Chronic Plan: - home meds held. (4) Hyperlipidemia Status: Chronic Plan: - Cont. home meds (5) Tobacco use Status: Chronic Plan: - Tobacco cessation - Nicotine patch Donn Lees MD Dec 14, 2016 08:01
--- NOTE | 2016-12-14 08:53 | PD.CAR.PN ---
CVT Progress Note Subjective/Hospital Course: Referral received Full evaluation and consult to follow Andrew Hoover 12/13/16 Patient doing well neurologically fully intact Discussed with Dr. Jones. All things equal, patient should be candidate for left carotid endarterectomy at this admission and no delay is necessary We'll proceed with left carotid endarterectomy Sunday morning 12/14/16 Vital signs stable Neurologically fully intact awake alert and oriented For left carotid endarterectomy tomorrow. We will keep on Plavix throughout the surgery Discussed risks and benefits with the patient at length Objective: Vital Signs Date Time Temp Pulse Resp B/P Pulse Ox O2 Delivery O2 Flow Rate FiO2 12/14/16 08:47 94 21 12/14/16 07:00 68 12/14/16 06:13 70 12/14/16 05:33 74 12/14/16 04:54 75 12/14/16 03:39 97.8 78 17 147/86 97 12/14/16 03:00 70 12/14/16 02:00 72 12/14/16 01:00 68 12/14/16 00:00 66 12/13/16 23:00 98.5 66 20 157/91 95 12/13/16 23:00 68 12/13/16 22:00 60 12/13/16 21:00 62 12/13/16 20:00 68 12/13/16 19:00 98.6 62 20 152/85 95 12/13/16 19:00 69 12/13/16 18:00 75 12/13/16 17:00 62 12/13/16 16:00 61 12/13/16 15:00 56 12/13/16 15:00 97.9 62 20 151/77 97 12/13/16 14:00 60 12/13/16 13:00 58 12/13/16 12:00 59 12/13/16 11:45 97.9 65 18 142/68 96 12/13/16 11:02 80 12/13/16 10:00 70 12/13/16 09:48 99 21 12/13/16 09:01 60 12/13/16 09:00 58 Result Diagram: 12/12/16 1108 Dagmar Cruz MD Dec 14, 2016 08:53
[2016-12-14] MEDS ORDERED: ceFAZolin 2 GM PREMIX 50 ML IV SCH (09:00)
[2016-12-14] MEDS: REMOVE OLD PATCH TD SCH (09:00)
[2016-12-14] MEDS: CLOPIDOGREL 75 MG TAB PO SCH (09:34)
[2016-12-14] MEDS: ATORVASTATIN 80 MG TAB PO SCH (09:34)
[2016-12-14] MEDS: NICOTINE 14 MG/24 HR PATCH TD SCH (09:34)
[2016-12-15] VITALS (12 sets, daily range): BP systolic 136–165; BP diastolic 57–81; PULSE 61–88; RESP 15–20; TEMP 97.6–98.1; O2SAT 94–97
[2016-12-15] MEDS: CHLORHEXIDINE GLUCONATE 2 % 1 PACK (2 CLOTHS)(taper/protocol) TOP SCH (04:00)
--- NOTE | 2016-12-15 07:27 | HHI.PR ---
Subjective Remarks doing well Objective Vitals alert/oriented no focal neuro deficit Vital Signs Date Time Temp Pulse Resp B/P Pulse Ox O2 Delivery O2 Flow Rate FiO2 12/15/16 06:13 71 12/15/16 05:00 70 12/15/16 04:00 78 12/15/16 03:00 98.1 81 136/72 94 12/15/16 03:00 74 12/15/16 02:00 82 12/15/16 01:00 74 12/15/16 00:00 68 12/14/16 23:00 74 12/14/16 23:00 98.1 79 142/87 93 12/14/16 22:00 78 12/14/16 21:00 72 12/14/16 20:24 94 12/14/16 20:00 80 12/14/16 19:15 98.3 74 151/93 95 12/14/16 19:15 76 12/14/16 15:00 98.0 68 20 142/83 96 12/14/16 15:00 69 12/14/16 11:00 72 12/14/16 11:00 98.0 69 20 144/87 96 12/14/16 08:47 94 21 12/14/16 08:00 98.3 74 20 154/89 94 12/14/16 12/14/16 12/15/16 15:00 23:00 07:00 Intake Total 580 ml 240 ml Balance 580 ml 240 ml Intake Oral 580 ml 240 ml # Voids 4 3 # Bowel Movements 1 Result Diagram: 12/12/16 1108 Imaging Last Impressions Neck CTA 12/12/16525 Signed Impressions: Service Date/Time: Monday, December 12, 2016 05:52 - CONCLUSION: 1. No evidence for hemodynamically significant stenosis of the right internal carotid artery, however there is a 70%% stenosis on the left. 2. Moderate calcific plaquing of the bilateral vertebral artery origins and moderate focal stenosis right proximal subclavian artery noted. Kyle Willoughby MD Head CTA 12/12/16525 Signed Impressions: Service Date/Time: Monday, December 12, 2016 05:52 - CONCLUSION: 1. Intracranial vessels are all patent without aneurysmal disease. 2. Patient is left vertebral dominant.. Jin Mccarthy MD Brain MRI 12/12/16525 Signed Impressions: Service Date/Time: Monday, December 12, 2016 07:31 - CONCLUSION: 1. No acute intracranial abnormality is identified. There are no findings to indicate recent ischemia. 2. Moderate severity periventricular white matter signal changes characteristic of chronic microvascular ischemia. David Wilson MD Head CT 12/12/16 0000 Signed Impressions: Service Date/Time: Monday, December 12, 2016 04:55 - CONCLUSION: 1. 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 2. Minimal chronic sinus disease in the right maxillary antra 3. Nothing acute. Jin Mccarthy MD Chest X-Ray 12/12/16 0000 Signed Impressions: Service Date/Time: Monday, December 12, 2016 05:24 - CONCLUSION: No acute cardiopulmonary process. Jin Mccarthy MD L A/P Problem List: (1) TIA (transient ischemic attack) Status: Acute Plan: - Pt admitted with right sided weakness and aphasia noted upon awakening - His symptoms lasted about an hour and then resolved. 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 - CTA of the head noted intracranial vessels are all patent without aneurysmal disease. 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 - Brain MRI did not reveal any acute intracranial abnormality or any findings to indicate recent ischemia. - 2d echo- grade 1 diastolic dysfunction seen by neurology and vascular plan for left cea today hopefully dc by Sunday cont antiplt and statin supportive care dvt prophylaxis (2) History of atrial fibrillation Status: Resolved Plan: - Pt with a hx of paroxysmal atrial fibrillation - He is currently in NSR - Telemetry (3) Hypertension Status: Chronic Plan: - home meds held. (4) Hyperlipidemia Status: Chronic Plan: - Cont. home meds (5) Tobacco use Status: Chronic Plan: - Tobacco cessation - Nicotine patch Donn Lees MD Dec 15, 2016 07:27
[2016-12-15] MEDS ORDERED: HEPARIN SODIUM - IV 10,000 UNITS/10 ML VIAL ONE (07:53)
[2016-12-15] MEDS ORDERED: HEPARIN SODIUM - SQ 10,000 UNITS/ML VIAL ONE (07:53)
[2016-12-15] MEDS ORDERED: PROTAMINE SULFATE 50 MG/5 ML VIAL ONE (07:54)
[2016-12-15] MEDS ORDERED: LIDOCAINE HCL 1% 50 ML VIAL ONE (07:54)
[2016-12-15] MEDS: ATORVASTATIN 80 MG TAB PO SCH (08:04)
[2016-12-15] MEDS ORDERED: MIDAZOLAM HCL 2 MG/2 ML VIAL ONE (08:51)
[2016-12-15] MEDS ORDERED: HEPARIN SODIUM - SQ 10,000 UNITS/ML VIAL OTHER ONE (09:00)
[2016-12-15] MEDS: CLOPIDOGREL 75 MG TAB PO SCH (09:00)
[2016-12-15] MEDS: REMOVE OLD PATCH TD SCH (09:00)
[2016-12-15] MEDS: NICOTINE 14 MG/24 HR PATCH TD SCH (09:00)
[2016-12-15] MEDS ORDERED: NORMOSOL R INJ 1,000 ML IV ONE (12:00)
[2016-12-15] MEDS ORDERED: ePHEDrine/NS 25 MG/5 ML SYR IV ONE (12:00)
[2016-12-15] MEDS ORDERED: PROPOFOL 200 MG/20 ML AMP IV ONE (12:00)
[2016-12-15] MEDS ORDERED: ONDANSETRON HCL 4 MG/2 ML VIAL IV PUSH ONE (12:00)
[2016-12-15] MEDS ORDERED: NEOSTIGMINE 3 MG/3 ML SYR IV ONE (12:00)
[2016-12-15] MEDS ORDERED: PHENYLEPH/NS 1000 MCG/10 ML SYR IV ONE (12:00)
[2016-12-15] MEDS ORDERED: fentaNYL CITRATE 250 MCG/5 ML AMP ONE (12:02)
[2016-12-15] MEDS ORDERED: *LABETALOL HCL 100 MG/20 ML VIAL PERIprocedural Use ONLY ONE (12:09)
[2016-12-15] MEDS ORDERED: SODIUM CHLOR 0.9% 250 ML INJ 250 ML ONE (12:12)
[2016-12-15] MEDS ORDERED: DIMETHICONE/OXYBENZONE/PADMIATE LIP BALM 4.25 GM ONE (12:20)
[2016-12-15] MEDS: niCARdipine 20MG/NS PREMIX 200 ML IV SCH ×2 (12:59→23:07)
[2016-12-15] MEDS ORDERED: oxyCODONE/ACETAMINOPHEN 5 MG/325 MG TAB PO PRN (13:00)
[2016-12-15] MEDS ORDERED: SODIUM CHLOR 0.9% 1000 ML INJ 1,000 ML IV SCH (13:00)
[2016-12-15] MEDS ORDERED: DO NOT ADM ANY ANTICOAGULANT DRUGS XX PRN (13:00)
[2016-12-15] MEDS ORDERED: *morphine SULFATE 8 MG/ML PERIprocedure ONLY ONE (13:34)
[2016-12-15] MEDS: MORPHINE SULFATE 4 MG/ML INJ IV PRN ×2 (14:47→18:28)
[2016-12-16] MEDS: MORPHINE SULFATE 4 MG/ML INJ IV PRN (00:20)
[2016-12-16 03:00] VITALS: BP_SYST 147; BP_SYST 156; BP_DIAS 64; BP_DIAS 71; PULSE 77; PULSE 79; RESP 21; TEMP 98.7; O2SAT 94
[2016-12-16] MEDS: CHLORHEXIDINE GLUCONATE 2 % 1 PACK (2 CLOTHS)(taper/protocol) TOP SCH (04:00)
[2016-12-16 04:29] LABS: AUTOMATED NEUTROPHIL # 7.8 TH/MM3 (1.8-7.7); BASOPHIL % 0.2 % (0.0-2.0); EOSINOPHIL % 0.2 % (0.0-4.0); HEMATOCRIT 42.2 % (39.0-51.0); HEMO FLAGS DIFF FINAL; LYMPH % 13.8 % (9.0-44.0); LYMPHOCYTE # 1.4 TH/MM3 (1.0-4.8); MEAN CELL VOLUME 88.6 FL (80.0-100.0); MEAN CORPUSCULAR HEMOGLOBIN 30.3 PG (27.0-34.0); MEAN CORPUSCULAR HGB CONC 34.1 % (32.0-36.0); MONO % 6.6 % (0.0-8.0); NEUT % 79.2 % (16.0-70.0); PLATELET COUNT 155 TH/MM3 (150-450); RED BLOOD COUNT 4.76 MIL/MM3 (4.50-5.90); RED CELL DISTRIBUTION WIDTH 14.4 % (11.6-17.2); WHITE BLOOD COUNT 9.8 TH/MM3 (4.0-11.0)
[2016-12-16 07:00] VITALS: BP_SYST 143; BP_SYST 160; BP_DIAS 66; BP_DIAS 74; PULSE 82; RESP 20; TEMP 98.5; O2SAT 94
--- NOTE | 2016-12-16 08:21 | HHI.PR ---
Subjective Remarks elevated bp overnight. off cardene eager for d/c Objective Vitals heart reg lung cta abd s/nt ext no edema left neck bandage. enrique drain. Vital Signs Date Time Temp Pulse Resp B/P Pulse Ox O2 Delivery O2 Flow Rate FiO2 12/16/16 07:00 82 12/16/16 07:00 94 Nasal Cannula 1.00 12/16/16 07:00 98.5 82 20 143/74 94 160/66 12/16/16 03:00 94 Nasal Cannula 2.00 12/16/16 03:00 98.7 79 21 156/71 94 147/64 12/16/16 03:00 77 12/15/16 23:00 97.9 88 18 144/75 94 151/77 12/15/16 23:00 94 Nasal Cannula 2.00 12/15/16 23:00 81 12/15/16 22:05 97 Nasal Cannula 2.00 12/15/16 19:00 95 Nasal Cannula 2.00 12/15/16 19:00 97.6 85 17 165/73 95 141/57 12/15/16 19:00 85 165/77 141/57 12/15/16 19:00 69 12/15/16 14:51 97.6 78 15 144/75 95 145/58 12/15/16 14:51 61 12/15/16 13:45 97.7 65 17 131/69 96 Nasal Cannula 2 124/49 12/15/16 13:30 67 17 142/77 96 Nasal Cannula 2 140/54 12/15/16 13:15 62 16 160/83 94 Nasal Cannula 2 155/60 12/15/16 13:00 61 16 149/87 94 Nasal Cannula 2 142/54 12/15/16 12:45 61 16 171/89 93 Nasal Cannula 2 149/57 12/15/16 12:30 68 16 158/61 93 Nasal Cannula 2 187/74 12/15/16 12:15 66 16 203/102 93 Nasal Cannula 2 187/74 12/15/16 12:00 97.9 81 16 247/119 94 Nasal Cannula 2 219/90 12/15/16 12/15/16 12/16/16 15:00 23:00 07:00 Intake Total 1800 ml 550 ml 1408 ml Output Total 175 ml 460 ml 1215 ml Balance 1625 ml 90 ml 193 ml Intake Oral 50 ml 240 ml IV Total 100 ml 500 ml 1168 ml Other 1700 ml Output Urine Total 170 ml 435 ml 1200 ml Drainage Total 25 ml 15 ml Estimated Blood Loss 5 ml Bladder Scan Volume Amount 786 ml # Voids 2 # Bowel Movements 0 0 Result Diagram: 12/16/168 Imaging Last Impressions Neck CTA 12/12/16525 Signed Impressions: Service Date/Time: Monday, December 12, 2016 05:52 - CONCLUSION: 1. No evidence for hemodynamically significant stenosis of the right internal carotid artery, however there is a 70%% stenosis on the left. 2. Moderate calcific plaquing of the bilateral vertebral artery origins and moderate focal stenosis right proximal subclavian artery noted. Kyle Willoughby MD Head CTA 12/12/16525 Signed Impressions: Service Date/Time: Monday, December 12, 2016 05:52 - CONCLUSION: 1. Intracranial vessels are all patent without aneurysmal disease. 2. Patient is left vertebral dominant.. Jin Mccarthy MD Brain MRI 12/12/16525 Signed Impressions: Service Date/Time: Monday, December 12, 2016 07:31 - CONCLUSION: 1. No acute intracranial abnormality is identified. There are no findings to indicate recent ischemia. 2. Moderate severity periventricular white matter signal changes characteristic of chronic microvascular ischemia. David Wilson MD Head CT 12/12/16 0000 Signed Impressions: Service Date/Time: Monday, December 12, 2016 04:55 - CONCLUSION: 1. 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 2. Minimal chronic sinus disease in the right maxillary antra 3. Nothing acute. Jin Mccarthy MD Chest X-Ray 12/12/16 0000 Signed Impressions: Service Date/Time: Monday, December 12, 2016 05:24 - CONCLUSION: No acute cardiopulmonary process. Jin Mccarthy MD L A/P Problem List: (1) TIA (transient ischemic attack) Status: Acute Plan: - Pt admitted with right sided weakness and aphasia noted upon awakening - His symptoms lasted about an hour and then resolved. 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 - CTA of the head noted intracranial vessels are all patent without aneurysmal disease. 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 - Brain MRI did not reveal any acute intracranial abnormality or any findings to indicate recent ischemia. - 2d echo- grade 1 diastolic dysfunction - s/p left cea 12/15 d/c art line d/c ivf resume home bb oob/ambulate d/c home later today if ok with Dr Bolanos (2) History of atrial fibrillation Status: Resolved Plan: - Pt with a hx of paroxysmal atrial fibrillation - He is currently in NSR - Telemetry (3) Hypertension Status: Chronic Plan: - home meds held. (4) Hyperlipidemia Status: Chronic Plan: - Cont. home meds (5) Tobacco use Status: Chronic Plan: - Tobacco cessation - Nicotine patch Donn Lees MD Dec 16, 2016 08:21
[2016-12-16] MEDS ORDERED: PLAV75TA29 PO (08:22)
--- NOTE | 2016-12-16 08:23 | HHI.DCPOC ---
Discharge Care Plan Diagnosis: (1) TIA (transient ischemic attack) (2) Hyperlipidemia (3) Hypertension (4) History of atrial fibrillation Goals to Promote Your Health * To prevent worsening of your condition and complications * To maintain your health at the optimal level Directions to Meet Your Goals Take your medications as prescribed Follow your dietary instruction Follow activity as directed Keep your appointments as scheduled Take your immunizations and boosters as scheduled If your symptoms worsen call your PCP, if no PCP go to Urgent Care Center or Emergency Room Smoking is Dangerous to Your Health. Avoid second hand smoke Call the 24-hour hour crisis hotline for domestic abuse at Donn Lees MD Dec 16, 2016 08:23
[2016-12-16] MEDS: REMOVE OLD PATCH TD SCH (09:00)
[2016-12-16] MEDS: NICOTINE 14 MG/24 HR PATCH TD SCH (09:00)
[2016-12-16] MEDS ORDERED: ALUMINUM/MAGNESIUM/SIMETH 30 ML CUP PO ONE (09:00)
[2016-12-16] MEDS ORDERED: METOPROLOL TARTRATE 50 MG TAB PO SCH (09:00)
[2016-12-16] MEDS ORDERED: ALUMINUM/MAGNESIUM/SIMETH 30 ML CUP PO PRN (09:00)
[2016-12-16 09:28] VITALS: O2SAT 95
[2016-12-16] MEDS: CLOPIDOGREL 75 MG TAB PO SCH (09:28)
[2016-12-16] MEDS: ATORVASTATIN 80 MG TAB PO SCH (09:28)
[2016-12-16 11:00] VITALS: BP 142/60; PULSE 74; RESP 20; TEMP 98.5; O2SAT 92
--- NOTE | 2016-12-19 23:56 | MP ---
cc: SANDIP CRUZ MD DATE OF SURGERY: 12/15/2016 PREOPERATIVE DIAGNOSIS: Left internal carotid artery 70 to 80% stenosis. TIAs. POSTOPERATIVE DIAGNOSIS: Left internal carotid artery 70 to 80% stenosis. TIAs. OPERATIVE PROCEDURE Left carotid endarterectomy, patch angioplasty, Bovine patch. SURGEON: Dr. Cruz ANESTHESIA: General. ESTIMATED BLOOD LOSS: 120 cc DESCRIPTION OF PROCEDURE: The patient prepped and draped in the usual fashion. Pre sternocleidomastoid incision made, deepened down to the layers of the platysma to the carotid sheath. Retractors were placed, Weitlaner, Adson-Raciel, upper arm, and Hooper. The common carotid, internal, external carotid arteries were sharply dissected with Metzenbaum scissors. The hypoglossal nerve is carefully identified and preserved. The umbilical tapes with the Rumel retractors were placed around each vessel respectively. The patient was given 7000 units of heparin and then DeBakey clamp is placed on the common carotid, and the bulldog on the internal carotid artery. The vessel was opened longitudinally with Chaudhry scissors. There is a huge plaque in it. [place] shunt is immediately placed and blood flow re-established. Around the shut plaque is now dissected in media plane using [place] dissector and removed. In the proximal portion, the plaque was a firm calcific plaque, however in the distal portion about an inch into the internal carotid artery, the plaque is cheesy, soupy with some necrotic material under the superficial intimal that generated layer which is probably the reason why the patient had TIAs and this material was flushing embolizing into the brain. The entire plaque is removed. The intima is now checked. Small debris is removed with heparinized saline. It is noted that the patient has a nicely peeled off intima and the internal carotid artery not requiring any suturing. In the common carotid artery, this one is cut sharply with Chaudhry scissors to get a nice clean edge. The area is one more irrigated with saline and then an 8 mm x 6-cm patch is sewn in with running 6-0 Prolene. Prior to completion of the patch angioplasty, the [place] shunt is removed. The closure completed and blood flow reestablished in the usual order and fashion preventing distal embolization. Meticulous hemostasis assured. A 7 flat STONEY laid in the area and then the wound once more irrigated. Pulse was checked with Doppler. The patient has a great signal in all three vessels and brisk flow into brain. The incision was closed with 2-0 Vicryl in layers and Monocryl for the skin. Dermabond applied in the recovery room. The patient wakes up, is neurologically fully intact. Sandip SAENZ/BILL /3:06 PM /10:44 PM
--- NOTE | 2017-01-04 21:07 | HHI.DS ---
Discharge Summary Admission Date Dec 12, 2016 at 05:39 Discharge Date: Dec 16, 2016 Admitting Diagnosis CVA/stroke alert (1) TIA (transient ischemic attack) Diagnosis: Principal (2) History of atrial fibrillation Diagnosis: Secondary (3) Hypertension Diagnosis: Secondary (4) Hyperlipidemia Diagnosis: Secondary (5) Tobacco use Diagnosis: Secondary Brief History Mr Parekh is a pleasant 71 y/o WM with HTN, hyperlipidemia, diet controlled diabetes mellitus, and hx of paroxysmal atrial fibrillation. He was brought to the ED at [facility] on 12/12/16 after he woke up around 0300 this morning to go to the bathroom and was unable to get up and walk due to right LE weakness. He states that he had RUE weakness and aphasia as well. His reported a right sided facial droop. Pt was brought to the ED as a stroke alert. Pt reports that his symptoms lasted about an hour and then resolved. He was started on Heparin in the ED. 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 CTA of the head noted intracranial vessels are all patent without aneurysmal disease. 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 Brain MRI did not reveal any acute intracranial abnormality or any findings to indicate recent ischemia. Pt denies any previous similar symptoms or known hx of TIA/CVA. He has a hx of paroxysmal atrial fibrillation but is currently in NSR. He states that he was on Coumadin at one point but was taken off of it several years ago. He denies any headache, visual changes, nausea/vomiting, chest pain, SOB or palpitations. Hospital Course - Pt admitted with right sided weakness and aphasia noted upon awakening - His symptoms lasted about an hour and then resolved. 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 - CTA of the head noted intracranial vessels are all patent without aneurysmal disease. 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 - Brain MRI did not reveal any acute intracranial abnormality or any findings to indicate recent ischemia. - 2d echo- grade 1 diastolic dysfunction - s/p left cea 12/15 d/c art line d/c ivf resume home bb oob/ambulate d/c home later today if ok with Dr Bolanos Pt Condition on Discharge: Stable Discharge Disposition: Discharge Home Discharge Instructions DIET: Follow Instructions for: Heart Healthy Diet Activities you can perform: Regular-No Restrictions Follow up Referrals: Vascular Surgery - 1 Week with Dagmar Cruz MD New Medications: Clopidogrel (Plavix) 75 Mg Tab 75 MG PO DAILY tia #30 Ref 6 TAB Continued Medications: Metoprolol Tartrate (Metoprolol Tartrate) 50 Mg Tab 50 MG PO DAILY #30 Ref 0 TAB Rosuvastatin (Crestor) 40 Mg Tab 40 MG PO DAILY Cholesterol Management #30 Ref 0 TAB Discontinued Medications: Aspirin (Aspirin) 81 Mg Chew 162 MG CHEW DAILY Ref 0 TAB Donn Lees MD Jan 04, 2017 21:06
== END 2016-12-16 15:53 | disposition home or self-care (01) | DRG 38 ==
LOC: NEPC 04:53 → NEDA 05:39 → HIME 11:40 → HCIS 18:36 → HCVR 12-15 13:54
PROVIDERS: ADMIT Hospitalist; ATTEND Hospitalist
PROC: 03UL0KZ Supplement Left Internal Carotid Artery with Nonautologous Tissue Substitute, Open Approach (ICD-10-PCS; 2016-12-15)
PROC: 03CL0ZZ Extirpation of Matter from Left Internal Carotid Artery, Open Approach (ICD-10-PCS; principal; 2016-12-15 09:24)
DX: I65.22 Occlusion and stenosis of left carotid artery (principal); G81.91 Hemiplegia, unspecified affecting right dominant side; E11.9 Type 2 diabetes mellitus without complications; R47.01 Aphasia; I10 Essential (primary) hypertension; E78.5 Hyperlipidemia, unspecified; K21.9 Gastro-esophageal reflux disease without esophagitis; K44.9 Diaphragmatic hernia without obstruction or gangrene; H26.9 Unspecified cataract; F17.210 Nicotine dependence, cigarettes, uncomplicated; Z79.82 Long term (current) use of aspirin; Z86.73 Personal history of transient ischemic attack (TIA), and cerebral infarction without residual deficits
CPT/HCPCS: 70450; 70496; 70498; 70551; 71010; 80061; 80307; 81001; 82435; 82550; 82565; 82947; 84132; 84295; 84484; 84520; 85025; 85027; 85384; 85610; 85730; 86850; 86900; 86901; 87641; 88304; 88311; 93005; 93306; 96360; C1768; J0690; J1644; J2250; J2270; J2370; J2405; J2710; J2720; J3010; J7030; J7050; Q9967

== ENCOUNTER 2016-12-28 12:01 | Emergency (ER) | payer MEDICARE ==
[~2016-12-28] VITALS: Ht 172.7 cm; Wt 70.0 kg
[~2016-12-28 12:01] MED LIST changes: -ASPI81CH CHEW; +PLAV75TA29 PO
[2016-12-28 12:07] VITALS: BP 166/67; PULSE 59; RESP 17; TEMP 97.8; O2SAT 97
[2016-12-28 13:14] VITALS: BP 174/74; PULSE 58; RESP 14; O2SAT 99
[2016-12-28] MEDS ORDERED: SODIUM CHLOR 0.9% 1000 ML INJ 1,000 ML IV ONE (13:15)
--- NOTE | 2016-12-28 13:15 | PD ---
HPI Chief Complaint: Dizziness Time Seen by Provider: 13:15 Travel History International Travel<30 days: No Contact w/Intl Traveler<30days: No Traveled to known affect area: No History of Present Illness HPI 71-year-old male presents to emergency Department with his via POV with history of 3 episodes of feeling "woozy" this morning. Patient states first time he was taking the garbage out, without any heavy lifting, when he developed some stomach nauseous this and "wooziness" and he felt generally mildly weak. He then sat down in the symptoms passed after "less than a minute " patient rested for approximately 20 minutes and attempted to get up and walk and had repeat symptoms similar to the first. They lasted again "less than a minute", and he rested again first 20-30 minutes and when he got up again he has recurrent symptoms prompted him to come to the emergency department. Patient denies headache, chest pain, or neck discomfort. Patient recently underwent an endarterectomy of the left carotid with Dr. Hoover. Patient denies any specific neurological symptoms. He is alert and oriented and denies syncope. Patient has a follow-up scheduled with Dr. Hoffmann on Sunday. Current medications include metoprolol 50 mg daily, Plavix, and Crestor. Patient is not diabetic and takes no other medications. He is allergic to amoxicillin and bee stings. PFSH Past Medical History Hx Anticoagulant Therapy: Yes Atrial Fibrillation: Yes Blood Disorders: No Anxiety: No Depression: No Heart Rhythm Problems: Yes (afib) Cancer: No Cardiac Catheterization: No Cardiovascular Problems: Yes High Cholesterol: Yes Chest Pain: No Congestive Heart Failure: No Cerebrovascular Accident: Yes (tia) Diabetes: No Diminished Hearing: No Endocrine: No Genitourinary: No Hypertension: Yes Immune Disorder: No Musculoskeletal: No Neurologic: Yes Psychiatric: No Reproductive: No Respiratory: No Immunizations Current: Yes Migraines: No Thyroid Disease: No Past Surgical History Abdominal Surgery: Yes (APPENDECTOMY) Appendectomy: Yes Cardiac Surgery: No Coronary Artery Bypass Graft: No Ear Surgery: No Endocrine Surgery: No Eye Surgery: No Genitourinary Surgery: No Gynecologic Surgery: No Oral Surgery: Yes (TONSILLECTOMY) Thoracic Surgery: No Tonsillectomy: Yes Other Surgery: Yes Social History Alcohol Use: No Tobacco Use: Yes (1/2 PACK A DAY FOR 40 YEARS) Substance Use: No Allergies-Medications (Allergen,Severity, Reaction): Coded Allergies: Amoxicillin (Verified Allergy, Severe, ITCHING, 12/12/16) Bee Sting (Verified Allergy, Mild, ITCHING BENADRYL STOPS ITCHING, 12/12/16) Reported Meds & Prescriptions Reported Meds & Active Scripts Active Plavix (Clopidogrel Bisulfate) 75 Mg Tab 75 Mg PO DAILY Reported Metoprolol Tartrate 50 Mg Tab 50 Mg PO DAILY Crestor (Rosuvastatin Calcium) 40 Mg Tab 40 Mg PO DAILY Review of Systems Except as stated in HPI: all other systems reviewed are Neg General / Constitutional: No: Fever, Chills Eyes: No: Diploplia, Blurred Vision, Photophobia, Blind Spots, Visual changes, Blindness HENT: Positive: Lightheadedness, No: Headaches, Vertigo, Sore Throat, Rhinitis , Rhinorrhea, Congestion, Nosebleed, Neck Stiffness, Neck Pain, Ear Discharge, Earache Cardiovascular: No: Chest Pain or Discomfort Respiratory: No: Cough, Shortness of Breath, Wheezing Gastrointestinal: Positive: Nausea (see history of present illness), No: Vomiting, Diarrhea, Abdominal Pain, Hematemesis, Hematochezia, Constipation, Dysphagia, Loss of Appetite Genitourinary: No: Urgency, Frequency, Dysuria Musculoskeletal: No: Pain Skin: No Rash Neurologic: No: Weakness Psychiatric: No: Depression Endocrine: No: Polydipsia Hematologic/Lymphatic: No: Easy Bruising Physical Exam Narrative GENERAL: Patient appears in no acute distress. SKIN: Warm and dry. Patient has normal color. Normal turgor. Incision site on the left neck is well-healed without signs of swelling, wound dehiscence, or bruising. HEAD: Atraumatic. Normocephalic. EYES: Pupils equal and round. No scleral icterus. No injection or drainage. Ocular motions are normal bilaterally. No nystagmus. ENT: No nasal bleeding or discharge. Mucous membranes pink and moist. Pharynx is clear. Airway is patent. NECK: Trachea midline. No JVD. No bruits are appreciated. No tenderness is appreciated with palpation. Range of motion is full and supple without tenderness. CARDIOVASCULAR: Bradycardic rate and normal rhythm. RESPIRATORY: No accessory muscle use. Clear to auscultation. Breath sounds equal bilaterally. GASTROINTESTINAL: Abdomen soft, non-tender, nondistended. Hepatic and splenic margins not palpable. MUSCULOSKELETAL: Extremities without clubbing, cyanosis, or edema. No obvious deformities. NEUROLOGICAL: Awake and alert. No obvious cranial nerve deficits. Motor grossly within normal limits. Five out of 5 muscle strength in the arms and legs. Normal speech. Patient has normal fine motor skills bilaterally. PSYCHIATRIC: Appropriate mood and affect; insight and judgment normal. Data Data Last Documented VS Vital Signs Date Time Temp Pulse Resp B/P Pulse Ox O2 Delivery O2 Flow Rate FiO2 12/28/16 13:55 58 24 144/70 98 Room Air 12/28/16 12:07 97.8 Orders Electrocardiogram (12/28/16 12:45) Complete Blood Count With Diff (12/28/16 12:45) Ckmb (Isoenzyme) Profile (12/28/16 12:45) Troponin I (12/28/16 12:45) Chest, Single Ap (12/28/16 12:45) Comprehensive Metabolic Panel (12/28/16 13:15) Sodium Chlor 0.9% 1000 Ml Inj (Ns 1000 M (12/28/16 13:15) Urinalysis - C+S If Indicated (12/28/16 13:15) Prothrombin Time / Inr (Pt) (12/28/16 13:26) Act Partial Throm Time (Ptt) (12/28/16 13:26) Labs Laboratory Tests Test 12/28/16 13:45 White Blood Count 8.2 TH/MM3 Red Blood Count 4.82 MIL/MM3 Hemoglobin 14.7 GM/DL Hematocrit 42.5 % Mean Corpuscular Volume 88.1 FL Mean Corpuscular Hemoglobin 30.4 PG Mean Corpuscular Hemoglobin 34.5 % Concent Red Cell Distribution Width 14.3 % Platelet Count 272 TH/MM3 Mean Platelet Volume 9.7 FL Neutrophils (%) (Auto) 63.9 % Lymphocytes (%) (Auto) 26.8 % Monocytes (%) (Auto) 5.8 % Eosinophils (%) (Auto) 3.1 % Basophils (%) (Auto) 0.4 % Neutrophils # (Auto) 5.2 TH/MM3 Lymphocytes # (Auto) 2.2 TH/MM3 Monocytes # (Auto) 0.5 TH/MM3 Eosinophils # (Auto) 0.3 TH/MM3 Basophils # (Auto) 0.0 TH/MM3 CBC Comment DIFF FINAL Differential Comment Prothrombin Time 10.7 SEC Prothromb Time International 1.0 RATIO Ratio Activated Partial 27.8 SEC Thromboplast Time Urine Color LIGHT-YELLOW Urine Turbidity CLEAR Urine pH 6.5 Urine Specific [place] 1.005 Urine Protein NEG mg/dL Urine Glucose (UA) NEG mg/dL Urine Ketones NEG mg/dL Urine Occult Blood NEG Urine Nitrite NEG Urine Bilirubin NEG Urine Urobilinogen LESS THAN 2.0 MG/DL Urine Leukocyte Esterase NEG Urine WBC LESS THAN 1 /hpf Urine Squamous Epithelial <1 /hpf Cells Microscopic Urinalysis Comment CULT NOT INDICATED Sodium Level 139 MEQ/L Potassium Level 4.5 MEQ/L Chloride Level 106 MEQ/L Carbon Dioxide Level 28.9 MEQ/L Anion Gap 4 MEQ/L Blood Urea Nitrogen 12 MG/DL Creatinine 1.00 MG/DL Estimat Glomerular Filtration 74 ML/MIN Rate Random Glucose 94 MG/DL Calcium Level 9.4 MG/DL Total Bilirubin 0.4 MG/DL Aspartate Amino Transf 17 U/L (AST/SGOT) Alanine Aminotransferase 22 U/L (ALT/SGPT) Alkaline Phosphatase 89 U/L Total Creatine Kinase 44 U/L Troponin I LESS THAN 0.02 NG/ML Total Protein 6.9 GM/DL Albumin 3.3 GM/DL [facility] Medical Decision Making Medical Screen Exam Complete: Yes Emergency Medical Condition: Yes Differential Diagnosis Dehydration. Cardiac syndrome. Near-syncope. Possible infection. Narrative Course Patient is medically stable at time of exam. EKG is obtained showing sinus bradycardia unchanged from previous EKG on file. EKG is reviewed with Dr. Erickson Patient is discussed with Dr. Erickson, and plan is agreed upon. Labs ordered including CBC, CMP, troponin, PT PTT and INR, and urinalysis. IV access is obtained patient is given 1000 mL normal saline bolus. Chest x-ray is ordered as well. X-ray is negative for acute process per radiologist. CBC is unremarkable. CMP is unremarkable. Urinalysis is unremarkable. Coagulation studies are normal. Troponin is Diagnosis Primary Impression: Postural dizziness Referrals: Primary Care Physician Patient Instructions: Dizziness (ED), General Instructions Additional Instructions: All labs today are within normal limits. Recommend resting and pushing fluids as discussed. Patient is to follow-up with Dr. Hoffmann as scheduled next Sunday. Patient should follow-up with his primary care physician as well. Patient can return to emergency department with symptoms recur or worsen as needed. Med/Other Pt SpecificInfo: No Change to Meds Disposition: 01 DISCHARGE HOME Condition: Stable Brandon Miranda Dec 28, 2016 13:15
[2016-12-28 13:55] VITALS: BP 144/70; PULSE 58; RESP 24; O2SAT 98
--- NOTE | 2016-12-28 14:02 | RADRPT ---
EXAM DATE/TIME: 12/28/2016 13:31 [facility] COMPARISON: CHEST SINGLE AP, December 12, 2016, 5:24. INDICATIONS : Short of breath. MEDICAL HISTORY : None. SURGICAL HISTORY : None. ENCOUNTER: Initial ACUITY: 1 day PAIN SCORE: 0/10 LOCATION: Bilateral chest FINDINGS: A single view of the chest demonstrates the lungs to be symmetrically aerated without evidence of mas s, infiltrate or effusion. The cardiomediastinal contours are unremarkable. Degenerative changes pre sent in the spine and shoulders. CONCLUSION: No acute cardiopulmonary disease David Samson MD on December 28, 2016 at 13:59 Board Certified Radiologist. This report was verified electronically.
[2016-12-28 14:05] LABS: AUTOMATED NEUTROPHIL # 5.2 TH/MM3 (1.8-7.7); BASOPHIL % 0.4 % (0.0-2.0); EOSINOPHIL # 0.3 TH/MM3 (0-0.4); EOSINOPHIL % 3.1 % (0.0-4.0); HEMATOCRIT 42.5 % (39.0-51.0); HEMO FLAGS DIFF FINAL; LYMPH % 26.8 % (9.0-44.0); LYMPHOCYTE # 2.2 TH/MM3 (1.0-4.8); MEAN CELL VOLUME 88.1 FL (80.0-100.0); MEAN CORPUSCULAR HEMOGLOBIN 30.4 PG (27.0-34.0); MEAN CORPUSCULAR HGB CONC 34.5 % (32.0-36.0); MONO % 5.8 % (0.0-8.0); NEUT % 63.9 % (16.0-70.0); PLATELET COUNT 272 TH/MM3 (150-450); RED BLOOD COUNT 4.82 MIL/MM3 (4.50-5.90); RED CELL DISTRIBUTION WIDTH 14.3 % (11.6-17.2); WHITE BLOOD COUNT 8.2 TH/MM3 (4.0-11.0)
[2016-12-28 14:06] LABS: BLOOD, URINE NEG (NEG); GLUCOSE,URINE NEG (NEG); KETONE, URINE NEG (NEG); NITRITE,URINE NEG (NEG); PH, URINE 6.5 (5.0-8.5); SQUAMOUS EPITHELIAL CELL URINE <1 /hpf (0-5); URINE COLOR LIGHT-YELLOW (YELLW/STRAW)
[2016-12-28 14:10] LABS: COMMENT (UR) CULT NOT INDICATED; CULTURE IF INDICATED CULT NOT INDICATED
[2016-12-28 14:17] LABS: APTT (PATIENT) 27.8 SEC (24.3-30.1); PROTHROMBIN TIME - PATIENT 10.7 SEC (9.8-11.6)
[2016-12-28 14:26] LABS: ALT (GPT) 22 U/L (12-78); ANION GAP 4 MEQ/L (5-15); AST (GOT) 17 U/L (15-37); BICARBONATE 28.9 MEQ/L (21.0-32.0); BLOOD UREA NITROGEN 12 MG/DL (7-18); CHLORIDE 106 MEQ/L (98-107); GLOMERULAR FILTRATION RATE 74 ML/MIN (>89); POTASSIUM 4.5 MEQ/L (3.5-5.1); SODIUM (NA) 139 MEQ/L (136-145)
[2016-12-28 14:28] LABS: ALKALINE PHOSPHATASE 89 U/L (45-117); TOTAL BILIRUBIN ADULT 0.4 MG/DL (0.2-1.0)
[2016-12-28 15:20] LABS: CREATINE KINASE 44 U/L (39-308)
--- NOTE | 2016-12-28 15:28 | PD ---
Data Data Last Documented VS Vital Signs Date Time Temp Pulse Resp B/P Pulse Ox O2 Delivery O2 Flow Rate FiO2 12/28/16 13:55 58 24 144/70 98 Room Air 12/28/16 12:07 97.8 Orders Electrocardiogram (12/28/16 12:45) Complete Blood Count With Diff (12/28/16 12:45) Ckmb (Isoenzyme) Profile (12/28/16 12:45) Troponin I (12/28/16 12:45) Chest, Single Ap (12/28/16 12:45) Comprehensive Metabolic Panel (12/28/16 13:15) Sodium Chlor 0.9% 1000 Ml Inj (Ns 1000 M (12/28/16 13:15) Urinalysis - C+S If Indicated (12/28/16 13:15) Prothrombin Time / Inr (Pt) (12/28/16 13:26) Act Partial Throm Time (Ptt) (12/28/16 13:26) Labs Laboratory Tests Test 12/28/16 13:45 White Blood Count 8.2 TH/MM3 Red Blood Count 4.82 MIL/MM3 Hemoglobin 14.7 GM/DL Hematocrit 42.5 % Mean Corpuscular Volume 88.1 FL Mean Corpuscular Hemoglobin 30.4 PG Mean Corpuscular Hemoglobin 34.5 % Concent Red Cell Distribution Width 14.3 % Platelet Count 272 TH/MM3 Mean Platelet Volume 9.7 FL Neutrophils (%) (Auto) 63.9 % Lymphocytes (%) (Auto) 26.8 % Monocytes (%) (Auto) 5.8 % Eosinophils (%) (Auto) 3.1 % Basophils (%) (Auto) 0.4 % Neutrophils # (Auto) 5.2 TH/MM3 Lymphocytes # (Auto) 2.2 TH/MM3 Monocytes # (Auto) 0.5 TH/MM3 Eosinophils # (Auto) 0.3 TH/MM3 Basophils # (Auto) 0.0 TH/MM3 CBC Comment DIFF FINAL Differential Comment Prothrombin Time 10.7 SEC Prothromb Time International 1.0 RATIO Ratio Activated Partial 27.8 SEC Thromboplast Time Urine Color LIGHT-YELLOW Urine Turbidity CLEAR Urine pH 6.5 Urine Specific [place] 1.005 Urine Protein NEG mg/dL Urine Glucose (UA) NEG mg/dL Urine Ketones NEG mg/dL Urine Occult Blood NEG Urine Nitrite NEG Urine Bilirubin NEG Urine Urobilinogen LESS THAN 2.0 MG/DL Urine Leukocyte Esterase NEG Urine WBC LESS THAN 1 /hpf Urine Squamous Epithelial <1 /hpf Cells Microscopic Urinalysis Comment CULT NOT INDICATED Sodium Level 139 MEQ/L Potassium Level 4.5 MEQ/L Chloride Level 106 MEQ/L Carbon Dioxide Level 28.9 MEQ/L Anion Gap 4 MEQ/L Blood Urea Nitrogen 12 MG/DL Creatinine 1.00 MG/DL Estimat Glomerular Filtration 74 ML/MIN Rate Random Glucose 94 MG/DL Calcium Level 9.4 MG/DL Total Bilirubin 0.4 MG/DL Aspartate Amino Transf 17 U/L (AST/SGOT) Alanine Aminotransferase 22 U/L (ALT/SGPT) Alkaline Phosphatase 89 U/L Total Creatine Kinase 44 U/L Troponin I LESS THAN 0.02 NG/ML Total Protein 6.9 GM/DL Albumin 3.3 GM/DL MDM Supervised Visit with SARAH BETH: Yes Narrative Course The history, exam, and medical decision-making in the associated mid-level provider note were completed with my assistance. I reviewed and agree with the findings presented. I attest that I had a [id number] encounter with the patient on the same day, and personally performed and documented my assessment and findings in the medical record. 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 He had no unilateral weakness speech difficulties or other stroke symptoms during these episodes. He looks otherwise well now. The endarterectomy sites healing uneventfully. EKG and labs are unremarkable. On his exam he is a trace amount of right facial droop and flattening the family states is old. Otherwise unremarkable. Recommend supportive treatment and outpatient follow-up. Diagnosis Primary Impression: Postural dizziness Referrals: Primary Care Physician Patient Instructions: General Instructions, Dizziness (ED) Additional Instruction: All labs today are within normal limits. Recommend resting and pushing fluids as discussed. Patient is to follow-up with Dr. Hoffmann as scheduled next Sunday. Patient should follow-up with his primary care physician as well. Patient can return to emergency department with symptoms recur or worsen as needed. Disposition: 01 DISCHARGE HOME Condition: Stable Cooper Erickson MD Dec 28, 2016 15:28
--- NOTE | 2016-12-30 11:22 | EKG ---
Date Performed: 12/28/2016 Time Performed: 13:11:22 PTAGE: 71 years EKG: SINUS BRADYCARDIA RIGHT BUNDLE BRANCH BLOCK ABNORMAL ECG PREVIOUS TRACING : 12/12/2016 05.12 DOCTOR: Chloe Bucio Interpretating Date/Time 12/30/2016 11:19:39
== END 2016-12-28 15:53 | disposition home or self-care (01) ==
LOC: NEPE 12:01
DX: R42 Dizziness and giddiness (principal); R94.31 Abnormal electrocardiogram [ECG] [EKG]; I48.91 Unspecified atrial fibrillation; Z79.01 Long term (current) use of anticoagulants; I10 Essential (primary) hypertension
CPT/HCPCS: 71010; 80053; 81001; 82550; 84484; 85025; 85610; 85730; 93005; 96360; 99284; J7030